=== PATIENT | male | born 1995 | race Caucasian/White ===

== ENCOUNTER 2017-11-29 15:58 | Emergency (ER) | payer SELFPAY ==
--- OUTSIDE RECORDS SUMMARY | 2017-11-29 16:01 | XMS REPORT | Clinical Summary ---
:1995 Author Organization [facility] Address [address] [place] [address] Care Team Providers Name Role Phone Unavailable Primary Care Provider Unavailable Allergies Active Allergy Reactions Severity Noted Date Comments No Known Drug Allergies 05/04/2010 Current Medications Prescription Sig. Disp. Refills Start Date End Date Status SULFAMETHOXAZOLE/TRIMETHOPR Take by mouth. Active IM (BACTRIM OR) methylphenidate (CONCERTA) Take 27 mg by Active 27 mg TR24 mouth every morning. 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 Methicillin resistant Staphylococcus aureus infection 01/13/2010 Fracture, olecranon 01/01/2010 Elbow stiffness 01/01/2010 Encounters Date Type Specialty Care Team Description 11/22/2017 Emergency Emergency Medicine after 11/28/2016 Family History Medical History Relation Name Comments Arthritis Maternal Grandfather Arthritis Maternal Grandmother Arthritis Paternal Grandfather Asthma Paternal Grandfather Hypertension Paternal Grandfather Hypertension Paternal Grandmother Relation Name Status Comments Father Alive Maternal Aunt Alive Maternal Grandfather Alive Maternal Grandmother Alive Maternal Uncle Alive Mother Alive Paternal Aunt Alive Paternal Grandfather Alive Paternal Grandmother Alive Sister Alive Social History Tobacco Use Types Packs/Day Years Used Date Never Smoker Alcohol Use Drinks/Week oz/Week Comments Yes Sex Assigned at Date Recorded Not on file Last Filed Vital Signs Vital Sign Reading Time Taken Blood Pressure 144/66 11/22/2017 1:01 AM CDT Pulse 68 11/22/2017 1:00 AM CDT Temperature 36.6 C (97.9 F) 11/22/2017 1:00 AM CDT Respiratory Rate 18 11/22/2017 1:00 AM CDT Oxygen Saturation 98% 11/22/2017 1:00 AM CDT Inhaled Oxygen Concentration - - Weight - - Height - - Body Mass Index - - Plan of Treatment Health Maintenance Due Date Last Done Comments IMM MenB (1 of 2 - Bexsero 2-Dose Series) 2006 Results BMP POC (11/22/2017 1:15 AM) Component Value Ref Range CO2 POC 24 21 - 32 mmol/L Chloride POC 104 98 - 107 mmol/L Potassium POC 3.9 3.50 - 5.10 mmol/L Sodium POC 141 136 - 145 mmol/L Glucose POC 101 74 - 106 mg/dL Urea Nitrogen POC 20 (H) 7 - 18 mg/dL Creatinine POC 1.0 0.6 - 1.3 mg/dL Calcium Ionized POC 1.12 (L) 1.15 - 1.29 mmol/L Hemoglobin POC 16.3 14.0 - 18.0 g/dL Hematocrit POC 48.0 40.0 - 54.0 % GFR, Estimated >60 mL/min/1.73 m2 GFR, Estim, Afr-Am >60 mL/min/1.73 m2 Specimen Performing Laboratory [facility] TROPONIN I POC (11/22/2017 1:13 AM) Component Value Ref Range Troponin POC 0.00 0.00 - 0.08 ng/mL Specimen Performing Laboratory [facility] 12 LEAD EKG (11/22/2017 1:06 AM) Component Value Ref Range 12 LEAD EKG FOR [facility] Test Date:2017-11-22 Pat Name: FARIDA MACKDepartment: : 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 Measurements IntervalsAxis Rate: 63 P: 45 SC: 174QRS: 54 QRSD: 87 T: 24 QT: 402 QTc:413 Interpretive Statements SINUS RHYTHM WITH SINUS ARRHYTHMIA Electronically Signed On 11-22-17 06:00:54 CDT by Armando Robles M.D. Specimen Performing Laboratory SMS after 11/28/2016
--- OUTSIDE RECORDS SUMMARY | 2017-11-29 16:01 | XMS REPORT | Clinical Summary ---
:1995 Demographics Phone Unavailable Preferred Language Unknown Marital Status Unknown Mosque Affiliation Unknown Race Unknown Ethnic Group Unknown Author Organization [facility] Address [address] [place] [address] Care Team Providers Name Role Phone Unavailable Primary Care Provider Unavailable Allergies No Known Allergies Current Medications Not on file Active Problems Not on file Encounters Date Type Specialty Care Team Description 11/21/2017 - 11/22/2017 Emergency Emergency Medicine after 11/28/2016 Social History Tobacco Use Types Packs/Day Years Used Date Never Assessed Sex Assigned at Date Recorded Not on file Last Filed Vital Signs Vital Sign Reading Time Taken Blood Pressure 132/80 11/21/2017 9:33 PM CDT Pulse 73 11/21/2017 9:33 PM CDT Temperature 36.9 C (98.4 F) 11/21/2017 9:33 PM CDT Respiratory Rate 18 11/21/2017 9:33 PM CDT Oxygen Saturation 98% 11/21/2017 9:33 PM CDT Inhaled Oxygen Concentration - - Weight - - Height 180.3 cm (5' 11") 11/21/2017 9:33 PM CDT Body Mass Index - - Plan of Treatment Not on file Results ECG 12 lead (11/21/2017 9:28 PM) Component Value Ref Range Ventricular rate 66 Atrial rate 66 AR interval 162 QRSD interval 98 QT interval 388 QTC interval 406 P axis 1 40 QRS axis 1 52 T wave axis 30 EKG impression Normal sinus rhythm-Normal ECG-No previous ECGs available- Specimen Performing Laboratory [facility] M[facility] [address] [place] [address] after 11/28/2016
--- OUTSIDE RECORDS SUMMARY | 2017-11-29 16:01 | XMS REPORT ---
:1995 [facility] Address [address] [place] [address] Dr. Rosa [address] [place] [address] Care Team Providers Name Role Phone Unavailable Unavailable Unavailable Problems This patient has no known problems. Allergies, Adverse Reactions, Alerts This patient has no known allergies or adverse reactions. Medications This patient has no known medications. Encounters Start End Encounter Admission Attending Care Care Encounter Date/Time Date/Time Type Type Clinicians Facility Department ID 2017-11-22 2017-11-22 Emergency [facility] MED [id number] 00:59:00 00:59:00
--- NOTE | 2017-11-29 20:47 | ER ---
Nurse's Notes [facility] Name: Wei Mack Age: 22 yrs Sex: Male : 1995 Arrival Date: 11/29/2017 Time: 16:01 Bed Waiting Private MD: None, None Diagnosis: Presentation: 11/29 16:13 Presenting complaint: Patient states: Headache for 3 days that is not helped by OTC aj medication. Transition of care: patient was not received from another setting of care. Onset of symptoms was November 26, 2017. Risk Assessment: Do you want to hurt yourself or someone else? Patient reports no desire to harm self or others. Care prior to arrival: None. 16:13 Method Of Arrival: Ambulatory aj 16:13 Acuity: JULIETA 4 aj Triage Assessment: 16:14 Headache History: The patient has had previous headaches and this one is more severe aj than previous episodes. General: Appears in no apparent distress. comfortable, Behavior is calm, cooperative, appropriate for age. Pain: Complains of pain in face and scalp Pain currently is 6 out of 10 on a pain scale. Pain began 2-3 days ago. Also complains of no other associated symptoms. Neuro: Level of Consciousness is awake, alert, obeys commands, Oriented to person, place, time, situation, Appropriate for age. Neuro: Reports headache. Respiratory: Airway is patent Respiratory effort is even, unlabored, Respiratory pattern is regular, symmetrical. Derm: Skin is intact, is healthy with good turgor, Skin is pink, warm \T\ dry. normal. Historical: - Allergies: 16:14 No Known Allergies; aj - Home Meds: 16:14 None [Active]; aj - PMHx: 16:14 Hypertension; aj - PSHx: 16:14 None; aj - Immunization history:: Adult Immunizations up to date. - Social history:: Smoking status: Patient uses tobacco products, smokes one pack cigarettes per day. - Ebola Screening: : Patient negative for fever greater than or equal to 101.5 degrees Fahrenheit, and additional compatible Ebola Virus Disease symptoms Patient denies exposure to infectious person Patient denies travel to an Ebola-affected area in the 21 days before illness onset No symptoms or risks identified at this time. Vital Signs: 16:14 BP 139 / 74; Pulse 81; Resp 16; Temp 97.8; Pulse Ox 98% on R/A; Weight 104.33 kg; aj Height 5 ft. 11 in. (180.34 cm); Pain 6/10; 16:14 Body Mass Index 32.08 (104.33 kg, 180.34 cm) aj ED Course: 16:01 Patient arrived in ED. sb2 16:01 None, None is Private Physician. sb2 16:14 Triage completed. aj 16:14 Arm band placed on right wrist. Patient placed in waiting room, Patient notified of aj wait time. 20:17 Patient's name was called from ER lobby. No response. aj 20:31 Patient's name was called from ER lobby. No response. aj 20:46 Patient's name was called from ER lobby. No response. aj 20:47 Sundeep Welch MD is Attending Physician. aj Administered Medications: No medications were administered Outcome: 20:46 Eloped from waiting room, before seeing physician Time discovered patient gone: November aj 2017 at 20:46 20:47 Patient left the ED. aj Signatures: Nafisa Gonzalez, RN RN Luzmaria Hoffman sb2
[2017-11-29 21:11] VITALS: BP 139/74; TEMP 97.8; O2SAT 98
== END 2017-11-29 20:47 | disposition left against medical advice (07) ==
LOC: ER 15:58
DX: R51 Headache (principal); Z53.21 Procedure and treatment not carried out due to patient leaving prior to being seen by health care provider; I10 Essential (primary) hypertension; F17.210 Nicotine dependence, cigarettes, uncomplicated
CPT/HCPCS: 99281

== ENCOUNTER 2018-08-06 14:24 | Emergency (ER) | payer SELFPAY ==
--- OUTSIDE RECORDS SUMMARY | 2018-08-06 14:27 | XMS REPORT | Clinical Summary ---
:1995 Demographics Phone Unavailable Preferred Language Unknown Marital Status Unknown Holiness Affiliation Unknown Race Unknown Ethnic Group Unknown Author Organization [facility] Address [address] [place] [address] Care Team Providers Name Role Phone Unavailable Primary Care Provider Unavailable Allergies No Known Allergies Medications Not on file Active Problems Not on file Encounters Date Type Specialty Care Team Description 11/21/2017 - 11/22/2017 Emergency Emergency Medicine after 08/05/2017 Social History Tobacco Use Types Packs/Day Years Used Date Never Assessed Sex Assigned at Date Recorded Not on file Job Start Date Occupation Industry Not on file Not on file Not on file Travel History Travel Start Travel End No recent travel history available. Last Filed Vital Signs Vital Sign Reading [...] - Plan of Treatment Not on file Procedures Procedure Name Priority Date/Time Associated Diagnosis Comments ECG 12-LEAD STAT 11/21/2017 9:28 PM Results for this CDT procedure are in the results section. after 08/05/2017 Results ECG 12 lead (11/21/2017 9:28 PM CDT) Ventricular rate 66 [facility] Atrial rate 66 [facility] OR interval 162 [facility] QRSD interval 98 [facility] QT interval 388 [facility] QTC interval 406 [facility] P axis 1 40 [facility] QRS axis 1 52 [facility] T wave axis 30 [facility] EKG impression Normal sinus rhythm-Normal ECG-No previous [facility] ECGs available- Performing Organization Address City/State/Zipcode Phone Number [facility] M[facility] [address] [place] [address] after 08/05/2017 Advance Directives Patient has advance care planning documents on file. For more information, please contact:Daniel Love[address] [facility] [place] [address]
--- OUTSIDE RECORDS SUMMARY | 2018-08-06 14:27 | XMS REPORT | Clinical Summary ---
:1995 Author Organization [facility] Address [address] [place] [address] Care Team Providers Name Role Phone Unavailable Primary Care Provider Unavailable Allergies Active Allergy Reactions Severity Noted Date Comments No Known Drug Allergies 05/04/2010 Medications Medication Sig Dispensed Refills Start Date End Date Status SULFAMETHOXAZOLE/TRIMETHO Take by mouth. 0 Active PRIM (BACTRIM OR) methylphenidate Take 27 mg by 0 Active (CONCERTA) 27 mg TR24 mouth every morning. 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 TROPONIN I POC Routine 11/22/2017 1:13 AM Results for this CDT procedure are in the results section. 12 LEAD EKG Routine 11/22/2017 1:06 AM Results for this CDT procedure are in the results section. after 08/05/2017 Results BMP POC (11/22/2017 1:15 AM CDT) CO2 POC 24 21 - 32 mmol/L [facility] 1 Chloride POC 104 98 - 107 mmol/L [facility] 1 Potassium POC 3.9 3.50 - 5.10 [facility] 1 mmol/L Sodium POC 141 136 - 145 mmol/L [facility] 1 Glucose POC 101 74 - 106 mg/dL [facility] 1 Urea Nitrogen POC 20 (H) 7 - 18 mg/dL [facility] 1 Creatinine POC 1.0 0.6 - 1.3 mg/dL [facility] 1 Calcium Ionized POC 1.12 (L) 1.15 - 1.29 [facility] 1 mmol/L Hemoglobin POC 16.3 14.0 - 18.0 g/dL [facility] 1 Hematocrit POC 48.0 40.0 - 54.0 % [facility] 1 GFR, Estimated >60 mL/min/1.73 m2 [facility] 1 GFR, Estim, Afr-Am >60 mL/min/1.73 m2 [facility] 1 Performing Organization Address City/State/Zipcode Phone Number [facility] TROPONIN I POC (11/22/2017 1:13 AM CDT) Troponin POC 0.00 0.00 - 0.08 ng/mL [facility] 1 Performing Organization Address City/State/Zipcode Phone Number [facility] 1 12 LEAD EKG (11/22/2017 1:06 AM CDT) 12 LEAD EKG FOR [facility] SMS Test Date:2017-11-22 Pat Name: FARIDA MACKDepartment: : 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 Measurements IntervalsAxis Rate: 63 P: 45 MD: 174QRS: 54 QRSD: 87 T: 24 QT: 402 QTc:413 Interpretive Statements SINUS RHYTHM WITH SINUS ARRHYTHMIA Electronically Signed On 11-22-17 06:00:54 CDT by Armando Robles M.D. Performing Organization Address City/State/Zipcode Phone Number [facility] after 08/05/2017
--- OUTSIDE RECORDS SUMMARY | 2018-08-06 14:27 | XMS REPORT ---
:1995 [facility] Address [address] [place] [address] Dr. Rosa [address] [place] [address] Care Team Providers Name Role Phone Unavailable Unavailable Unavailable Problems This patient has no known problems. Allergies, Adverse Reactions, Alerts This patient has no known allergies or adverse reactions. Medications This patient has no known medications. Encounters Start End Encounter Admission Attending Care Care Encounter Date/Time Date/Time Type Type Clinicians Facility Department ID 2017-11-22 2017-11-22 Emergency [facility] MED [id number] 00:59:00 00:59:00
--- NOTE | 2018-08-06 15:30 | RAD REPORT ---
EXAM DESCRIPTION: CT - Head Brain Wo Cont - 08/06/2018 3:10 pm CLINICAL HISTORY: weakness/feels confused ;Headache Headache, drowsiness COMPARISON: CT HEAD SPINE CAP W CONTRAST dated 09/14/2013 TECHNIQUE: All CT scans are performed using dose optimization technique as appropriate and may inclu de automated exposure control or mA/KV adjustment according to patient size. FINDINGS: No intracranial hemorrhage, hydrocephalus or extra-axial fluid collection.No areas of brai n edema or evidence of midline shift. The paranasal sinuses and mastoids are clear. The calvarium is intact. IMPRESSION: No acute intracranial abnormality.
[2018-08-06 16:20] LABS: Absolute Monocytes 0.8 K/uL (0.1-1.3); Absolute Neutrophil 6.9 K/uL (1.8-8.0); Basophils % 0.5 % (0-1.3); Eosinophils % 2.9 % (0-4.4); Hematocrit 46.5 % (39.6-49.0); MPV 10.5 fL (7.6-11.3); Monocytes % 7.5 % (3.3-12.3); RBC Red Blood Cell Count 5.65 M/uL (4.33-5.43)
[2018-08-06 16:27] LABS: Albumin 4.3 g/dL (3.4-5.0); Bilirubin Direct 0.1 mg/dL (0-0.2); Bilirubin Total 0.4 mg/dL (0.2-1.0); Potassium 3.8 mmol/L (3.5-5.1); Protein, Total 7.8 g/dL (6.4-8.2)
--- NOTE | 2018-08-06 17:09 | EDPHYS ---
Physician Documentation [facility] Name: Wei Mack Age: 22 yrs Sex: Male : 1995 Arrival Date: 08/06/2018 Time: 14:28 Bed 23 Private MD: None, None ED Physician Lydia Beltran HPI: 08/06 15:45 This 22 yrs old Male presents to ER via Ambulatory with complaints of cp Weakness, Dizziness. 15:45 The patient presents to the emergency department with weakness of the entire body, cp generalized weakness, dizziness. Onset: The symptoms/episode began/occurred yesterday. Context: occurred while the patient was outside fishing. Associated signs and symptoms: Pertinent positives: fatigue, Pertinent negatives: altered mental status, fever, headache, neck stiffness, paresthesias, syncope. Severity of symptoms: in the emergency department the symptoms are unchanged despite home interventions. Patient's baseline: Neuro: alert and fully oriented, Motor: no deficits, Ambulation: walks without assistance, Speech: normal. Historical: - Allergies: 14:44 No Known Allergies; aa5 - Home Meds: 14:44 Lisinopril Oral [Active]; aa5 - PMHx: 14:44 Hypertension; aa5 - PSHx: 14:44 None; aa5 - Immunization history:: Flu vaccine is not up to date. - Social history:: Smoking status: Patient uses tobacco products, smokes one-half pack cigarettes per day. - Ebola Screening: : No symptoms or risks identified at this time. ROS: 15:50 Constitutional: Negative for body aches, chills, fever, poor PO intake. cp 15:50 Eyes: Negative for injury, pain, redness, and discharge. cp 15:50 ENT: Negative for drainage from ear(s), ear pain, sore throat, difficulty swallowing, difficulty handling secretions. 15:50 Cardiovascular: Negative for chest pain, edema, palpitations. 15:50 Respiratory: Negative for cough, shortness of breath, wheezing. 15:50 Abdomen/GI: Negative for abdominal pain, nausea, vomiting, and diarrhea, black/tarry stool, rectal bleeding. 15:50 : Negative for urinary symptoms. 15:50 Skin: Negative for cellulitis, rash. 15:50 Neuro: Positive for dizziness, general weakness, Negative for altered mental status, headache, syncope. 15:50 All other systems are negative. Exam: 15:55 Constitutional: The patient appears in no acute distress, alert, awake, comfortable, cp non-diaphoretic, non-toxic, well developed, well nourished. 15:55 Head/Face: Normocephalic, atraumatic. Eyes: Pupils equal round and reactive to light, cp extra-ocular motions intact. Lids and lashes normal. Conjunctiva and sclera are non-icteric and not injected. Cornea within normal limits. Periorbital areas with no swelling, redness, or edema. ENT: Nares patent. No nasal discharge, no septal abnormalities noted. Tympanic membranes are normal and external auditory canals are clear. Oropharynx with no redness, swelling, or masses, exudates, or evidence of obstruction, uvula midline. Mucous membranes moist. Neck: Trachea midline, no thyromegaly or masses palpated, and no cervical lymphadenopathy. Supple, full range of motion without nuchal rigidity, or vertebral point tenderness. No Meningismus. Chest/axilla: Normal chest wall appearance and motion. Nontender with no deformity. No lesions are appreciated. Cardiovascular: Regular rate and rhythm with a normal S1 and S2. No gallops, murmurs, or rubs. Normal PMI, no JVD. No pulse deficits. Respiratory: Lungs have equal breath sounds bilaterally, clear to auscultation and percussion. No rales, rhonchi or wheezes noted. No increased work of breathing, no retractions or nasal flaring. Abdomen/GI: Soft, non-tender, with normal bowel sounds. No distension or tympany. No guarding or rebound. No evidence of tenderness throughout. Skin: Warm, dry with normal turgor. Normal color with no rashes, no lesions, and no evidence of cellulitis. Neuro: Awake and alert, GCS 15, oriented to person, place, time, and situation. Cranial nerves II-XII grossly intact. Motor strength 5/5 in all extremities. Sensory grossly intact. Cerebellar exam normal. Normal gait. 15:58 ECG was reviewed by the Attending Physician. Vital Signs: 14:44 BP 142 / 82; Pulse 77; Resp 16 S; Temp 98.4(TE); Pulse Ox 98% on R/A; Weight 108.86 kg aa5 (R); Height 5 ft. 11 in. (180.34 cm) (R); Pain 0/10; 17:24 BP 135 / 78; Pulse 70; Resp 18; Pulse Ox 100% on R/A; Pain 0/10; mg2 14:44 Body Mass Index 33.47 (108.86 kg, 180.34 cm) aa5 MDM: 15:44 Patient medically screened. 17:05 Data reviewed: vital signs, nurses notes, lab test result(s), EKG, radiologic studies, cp CT scan. 17:05 Test interpretation: by ED physician or midlevel provider: ECG. Counseling: I had a cp detailed discussion with the patient and/or guardian regarding: the historical points, exam findings, and any diagnostic results supporting the discharge/admit diagnosis, lab results, radiology results, the need for outpatient follow up, a family practitioner, to return to the emergency department if symptoms worsen or persist or if there are any questions or concerns that arise at home. Response to treatment: the patient's symptoms have mildly improved after treatment, and as a result, I will discharge patient. 08/06 15:45 Order name: Basic Metabolic Panel; Complete Time: 16:31 08/06 16:31 Interpretation: Normal except: CL 108; GFR 84. 08/06 15:45 Order name: CBC with Diff; Complete Time: 16:31 08/06 16:31 Interpretation: Normal except: WBC 11.2; RBC 5.65. 08/06 14:46 Order name: CT Head Brain wo Cont; Complete Time: 15:35 [facility] 08/06 15:35 Interpretation: Report reviewed. 08/06 15:45 Order name: EKG; Complete Time: 15:46 08/06 15:45 Order name: LFT's; Complete Time: 16:31 08/06 15:45 Order name: Magnesium; Complete Time: 16:31 08/06 15:45 Order name: EKG - Nurse/Tech; Complete Time: 16:13 08/06 15:45 Order name: Cardiac monitoring; Complete Time: 16:13 08/06 15:45 Order name: IV Saline Lock; Complete Time: 16:13 08/06 15:45 Order name: Labs collected and sent; Complete Time: 16:13 08/06 15:45 Order name: O2 Per Protocol; Complete Time: 16:13 08/06 15:45 Order name: O2 Sat Monitoring; Complete Time: 16:13 cp EC:58 Rate is 58 beats/min. Rhythm is regular. CA interval is normal. QRS interval is normal. cp QT interval is normal. Interpreted by me. Reviewed by me. Administered Medications: No medications were administered Disposition: 19:25 Co-signature as Attending Physician, Lydia Beltran MD. ma2 Disposition: 08/06/18 17:07 Discharged to Home. Impression: Weakness - general, Dizziness. - Condition is Stable. - Discharge Instructions: Dizziness, Weakness. - Medication Reconciliation Form, Thank You Letter, Antibiotic Education, Prescription Opioid Use, Work release form form. - Follow up: Private Physician; When: 2 - 3 days; Reason: Recheck today's complaints. - Problem is new. - Symptoms have improved. Signatures: Dispatcher [employer] EDMS Rea Dozier RN RN aa5 Tommy Menendez PA PA Lydia Beltran MD MD ma2 Geo Bruno RN RN mg2 Corrections: (The following items were deleted from the chart) 17:24 17:07 08/06/2018 17:07 Discharged to Home. Impression: Weakness - general; Dizziness. mg2 Condition is Stable. Forms are Medication Reconciliation Form, Thank You Letter, Antibiotic Education, Prescription Opioid Use. Follow up: Private Physician; When: 2 - 3 days; Reason: Recheck today's complaints. Problem is new. Symptoms have improved. cp
--- NOTE | 2018-08-06 17:09 | ER ---
Nurse's Notes [facility] Name: Wei Mack Age: 22 yrs Sex: Male : 1995 Arrival Date: 08/06/2018 Time: 14:28 Bed 23 Private MD: None, None Diagnosis: Weakness-general;Dizziness Presentation: 08/06 14:43 Presenting complaint: Patient states: generalized weakness, feeling lightheaded, and aa5 intermittent dizziness that began yesterday. Transition of care: patient was not received from another setting of care. Risk Assessment: Do you want to hurt yourself or someone else? Patient reports no desire to harm self or others. Initial Sepsis Screen: Does the patient meet any 2 criteria? No. Patient's initial sepsis screen is negative. Does the patient have a suspected source of infection? No. Patient's initial sepsis screen is negative. Care prior to arrival: None. 14:43 Method Of Arrival: Ambulatory aa5 14:43 Acuity: JULIETA 3 aa5 16:09 Onset of symptoms was August 05, 2018. mg2 Historical: - Allergies: 14:44 No Known Allergies; aa5 - Home Meds: 14:44 Lisinopril Oral [Active]; aa5 - PMHx: 14:44 Hypertension; aa5 - PSHx: 14:44 None; aa5 - Immunization history:: Flu vaccine is not up to date. - Social history:: Smoking status: Patient uses tobacco products, smokes one-half pack cigarettes per day. - Ebola Screening: : No symptoms or risks identified at this time. Screenin:09 Abuse screen: Denies threats or abuse. Denies injuries from another. Nutritional mg2 screening: No deficits noted. Tuberculosis screening: No symptoms or risk factors identified. Fall Risk IV access (20 points). Assessment: 16:08 General: Appears in no apparent distress. comfortable, Behavior is calm, cooperative. mg2 Pain: Denies pain. Neuro: Level of Consciousness is awake, alert, obeys commands, Oriented to person, place, time, situation, Reports dizziness, since yesterday. Cardiovascular: Capillary refill < 3 seconds Patient's skin is warm and dry. Respiratory: Airway is patent Respiratory effort is even, unlabored, Respiratory pattern is regular. GI: No signs and/or symptoms were reported involving the gastrointestinal system. : No signs and/or symptoms were reported regarding the genitourinary system. EENT: No signs and/or symptoms were reported regarding the EENT system. Derm: Skin is intact, is healthy with good turgor, Skin is pink, warm \T\ dry. normal. Musculoskeletal: No signs and/or symptoms reported regarding the musculoskeletal system. Vital Signs: 14:44 BP 142 / 82; Pulse 77; Resp 16 S; Temp 98.4(TE); Pulse Ox 98% on R/A; Weight 108.86 kg aa5 (R); Height 5 ft. 11 in. (180.34 cm) (R); Pain 0/10; 17:24 BP 135 / 78; Pulse 70; Resp 18; Pulse Ox 100% on R/A; Pain 0/10; mg2 14:44 Body Mass Index 33.47 (108.86 kg, 180.34 cm) aa5 ED Course: 14:28 Patient arrived in ED. mr 14:28 None, None is Private Physician. mr 14:43 Arm band placed on. aa5 14:44 Triage completed. aa5 15:09 CT completed. Patient tolerated procedure well. Patient moved to CT. Patient moved back nj from CT. 15:10 CT Head Brain wo Cont In Process Unspecified. EDWI 15:34 Tommy Menendez PA is PHCP. cp 15:34 Lydia Beltran MD is Attending Physician. cp 15:37 Geo Bruno, KACIE is Primary Nurse. mg2 15:58 EKG done, by fingerprint technician. reviewed by Tommy ORDONEZ. sm3 16:09 Patient has correct armband on for positive identification. Pulse ox on. NIBP on. Door mg2 closed. Warm blanket given. 16:10 No provider procedures requiring assistance completed. Inserted saline lock: 20 gauge mg2 in right antecubital area, using aseptic technique. Blood collected. 17:24 IV discontinued, intact, bleeding controlled, No redness/swelling at site. Pressure mg2 dressing applied. Administered Medications: No medications were administered Outcome: 17:07 Discharge ordered by . cp 17:24 Discharged to home ambulatory, with family. mg2 17:24 Condition: stable 17:24 Discharge instructions given to patient, family, Instructed on discharge instructions, follow up and referral plans. Demonstrated understanding of instructions, follow-up care. 17:24 Patient left the ED. mg2 Signatures: Dispatcher [facility], Angela mr Jacoby, Rea, RN RN aa5 Tommy Menendez PA PA cp Jordan, Nathan nj Gardose, Michele, RN RN [facility] [place] [place] Lu Barron 3
--- NOTE | 2018-08-06 17:25 | EKG ---
Test Date: 2018-08-06 Test Time: 15:54:16 Admissions Consultant: XIMENA MEASUREMENT RESULTS: Intervals: Rate: 58 ND: 164 QRSD: 96 QT: 408 QTc: 400 [place]: P: 50 ND: 164 QRS: 78 T: 24 INTERPRETIVE STATEMENTS: Sinus bradycardia with sinus arrhythmia Otherwise normal ECG Compared to ECG 09/14/2013 18:29:41 Sinus rhythm no longer present Electronically Signed On 08-06-18 17:24:33 CAR WHACKER by Higinio Smith
[2018-08-06 19:25] VITALS: TEMP 98.4
[2018-08-06 19:27] VITALS: BP 135/78; O2SAT 100
== END 2018-08-06 17:24 | disposition home or self-care (01) ==
LOC: ER 14:24
DX: R53.1 Weakness (principal); I10 Essential (primary) hypertension; F17.210 Nicotine dependence, cigarettes, uncomplicated
CPT/HCPCS: 36415; 70450; 80048; 80076; 83735; 85025; 93005; 99284

== ENCOUNTER 2018-09-17 16:20 | Emergency (ER) | payer SELFPAY ==
--- OUTSIDE RECORDS SUMMARY | 2018-09-17 16:23 | XMS REPORT ---
:1995 [facility] [address] Rosa [address] [place] [address] Care Team Providers Name Role Phone Unavailable Unavailable Unavailable Problems This patient has no known problems. Allergies, Adverse Reactions, Alerts This patient has no known allergies or adverse reactions. Medications This patient has no known medications. Encounters Start End Encounter Admission Attending Care Care Encounter Date/Time Date/Time Type Type Clinicians Facility Department ID 2017-11-22 2017-11-22 Emergency [facility] [id number] 00:59:00 00:59:00
--- OUTSIDE RECORDS SUMMARY | 2018-09-17 16:23 | XMS REPORT | Clinical Summary ---
:1995 Author Organization [facility] Address [address] [place] [id number] Care Team Providers Name Role Phone Unavailable [...] Team Description 11/22/2017 Emergency Emergency Medicine after 09/16/2017 Family History Medical History Relation Name Comments [...] procedure are in the results section. after 09/16/2017 Results BMP POC (11/22/2017 1:15 AM CDT) [...] 1:06 AM CDT) 12 LEAD EKG FOR [facility] SMS Test Date:2017-11-22 Pat Name: FARIDA MACKDepartment: : Gender: M Security Intelligence Analyst: [id number] :1995 Requested By: Order Number:Reading MD: Armando Robles M.D. Measurements IntervalsAxis Rate: 63 P: 45 WY: 174QRS: 54 QRSD: 87 T: 24 QT: 402 QTc:413 Interpretive Statements SINUS RHYTHM WITH SINUS ARRHYTHMIA Electronically Signed On 11-22-17 06:00:54 CDT by Armando Robles M.D. Performing Organization Address City/State/Zipcode Phone Number [facility] after 09/16/2017
--- OUTSIDE RECORDS SUMMARY | 2018-09-17 16:23 | XMS REPORT | Clinical Summary ---
:1995 Demographics Phone Unavailable Preferred Language Unknown Marital Status Unknown Jewish Affiliation Unknown Race Unknown Ethnic Group Unknown Author Organization [facility] Address [address] [place] [address] Care Team Providers Name Role Phone Unavailable Primary Care Provider Unavailable Allergies No Known Allergies Medications Not on file Active Problems Not on file Encounters Date Type Specialty Care Team Description 11/21/2017 - 11/22/2017 Emergency Emergency Medicine after 09/16/2017 Social History Tobacco Use Types Packs/Day Years [...] in the results section. after 09/16/2017 Results ECG 12 lead (11/21/2017 9:28 PM CDT) Ventricular rate 66 [facility] Atrial rate 66 [facility] ME interval 162 [facility] QRSD interval 98 [facility] QT interval 388 [facility] QTC interval 406 [facility] P axis 1 40 [facility] QRS axis 1 52 [facility] T wave axis 30 [facility] EKG impression Normal sinus rhythm-Normal ECG-No previous [facility] ECGs available- Performing Organization Address City/State/Zipcode Phone Number [facility] [address] [place] [address] after 09/16/2017 Advance Directives Patient has advance care planning documents on file. For more information, please contact:Daniel Love[address] [place] [address]
--- NOTE | 2018-09-17 17:43 | ER ---
Nurse's Notes [facility] Name: Wei Mack Age: 22 yrs Sex: Male : 1995 Arrival Date: 09/17/2018 Time: 16:23 Bed 10 Private MD: None, None Diagnosis: Tinea pedis Presentation: 09/17 16:33 Presenting complaint: Patient states: "I've had athlete's foot for about a month and aa5 not getting better". Transition of care: patient was not received from another setting of care. Onset of symptoms was July 2018. Risk Assessment: Do you want to hurt yourself or someone else? Patient reports no desire to harm self or others. Initial Sepsis Screen: Does the patient meet any 2 criteria? No. Patient's initial sepsis screen is negative. Does the patient have a suspected source of infection? No. Patient's initial sepsis screen is negative. Care prior to arrival: None. 16:33 Method Of Arrival: Ambulatory aa5 16:33 Acuity: JULIETA 5 aa5 Historical: - Allergies: 16:34 No Known Allergies; aa5 - Home Meds: 16:34 lisinopril Oral [Active]; aa5 - PMHx: 16:34 Hypertension; aa5 - PSHx: 16:34 None; aa5 - Immunization history:: Flu vaccine is not up to date. - Social history:: Smoking status: Patient uses tobacco products, smokes one-half pack cigarettes per day. - Ebola Screening: : No symptoms or risks identified at this time. Screenin:50 Abuse screen: Denies threats or abuse. Denies injuries from another. Nutritional hb screening: No deficits noted. Tuberculosis screening: No symptoms or risk factors identified. Fall Risk None identified. Assessment: 16:45 General: Appears in no apparent distress. Behavior is calm, cooperative. Pain: Pain hb currently is 9 out of 10 on a pain scale. Neuro: Level of Consciousness is awake, alert, obeys commands, Oriented to person, place, time, situation. Cardiovascular: Capillary refill < 3 seconds Patient's skin is warm and dry. Respiratory: Airway is patent Respiratory effort is even, unlabored, Respiratory pattern is regular, symmetrical. GI: No signs and/or symptoms were reported involving the gastrointestinal system. : No signs and/or symptoms were reported regarding the genitourinary system. EENT: No signs and/or symptoms were reported regarding the EENT system. Derm: rash on bilateral feet, mild swelling noted to bottom of bilateral feet. Musculoskeletal: No signs and/or symptoms reported regarding the musculoskeletal system. 17:30 Reassessment: Patient appears in no apparent distress at this time. No changes from hb previously documented assessment. Patient and/or family updated on plan of care and expected duration. Pain level reassessed. Patient is alert, oriented x 3, equal unlabored respirations, skin warm/dry/pink. Vital Signs: 16:34 BP 134 / 65; Pulse 87; Resp 16 S; Temp 98.4(TE); Pulse Ox 98% on R/A; Weight 108.86 kg aa5 (R); Height 5 ft. 11 in. (180.34 cm) (R); Pain 9/10; 16:34 Body Mass Index 33.47 (108.86 kg, 180.34 cm) aa5 ED Course: 16:23 Patient arrived in ED. mr 16:24 None, None is Private Physician. mr 16:34 Triage completed. aa5 16:34 Arm band placed on. aa5 16:50 Patient has correct armband on for positive identification. Call light in reach. hb 16:51 Georges Rowe PA is [facility] 16:51 Tommy Schaefer MD is Attending Physician. [facility] 17:11 Carol Ann Kelly, RN is Primary Nurse. hb 17:53 No provider procedures requiring assistance completed. Patient did not have IV access hb during this emergency room visit. Administered Medications: No medications were administered Outcome: 17:43 Discharge ordered by MD. [facility] 17:53 Discharged to home ambulatory, with significant other. hb 17:53 Condition: stable 17:53 Discharge instructions given to patient, Instructed on discharge instructions, follow up and referral plans. medication usage, Demonstrated understanding of instructions, follow-up care, medications, Prescriptions given X 1. 17:54 Patient left the ED. hb Signatures: Georges Rowe PA PA jmm Rivera, Mary mr DozierRea, RN RN aa5 Carol Ann Kelly, KACIE RN hb
--- NOTE | 2018-09-17 17:43 | EDPHYS ---
Physician Documentation [facility] Name: Wei Mack Age: 22 yrs Sex: Male : 1995 Arrival Date: 09/17/2018 Time: 16:23 Bed 10 Private MD: None, None ED Physician Tommy Schaefer HPI: 09/17 17:36 This 22 yrs old Male presents to ER via Ambulatory with complaints of Feet jmm Swelling, Foot Pain. 17:36 The patient presents with pain. Onset: The symptoms/episode began/occurred gradually, 2 jmm week(s) ago. Modifying factors: The symptoms are alleviated by nothing. the symptoms are aggravated by nothing. This is a 22 year old male with a history of htn that presents to the ED with complaints of bilateral foot pain and itching beginning 2 weeks ago. patient states he has used otc lamisil, tea tree oil, and bleach with little relief. Patient states he is prone to atheltes foot. patient denies fever. . Historical: - Allergies: 16:34 No Known Allergies; aa5 - Home Meds: 16:34 lisinopril Oral [Active]; aa5 - PMHx: 16:34 Hypertension; aa5 - PSHx: 16:34 None; aa5 - Immunization history:: Flu vaccine is not up to date. - Social history:: Smoking status: Patient uses tobacco products, smokes one-half pack cigarettes per day. - Ebola Screening: : No symptoms or risks identified at this time. ROS: 17:36 Constitutional: Negative for fever, chills, and weight loss, Cardiovascular: Negative jmm for chest pain, palpitations, and edema, Respiratory: Negative for shortness of breath, cough, wheezing, and pleuritic chest pain. 17:36 MS/extremity: Positive for pain. 17:36 Skin: Positive for itching. 17:36 Allergy/Immunology: Positive for pruritus. 17:36 All other systems are negative. Exam: 17:36 Head/Face: atraumatic. Eyes: EOMI, no conjunctival erythema appreciated ENT: Moist jmm Mucus Membranes Neck: Trachea midline, Supple Chest/axilla: Normal chest wall appearance and motion. Cardiovascular: Regular rate and rhythm. No edema appreciated Respiratory: Normal respirations, no respiratory distress appreciated Abdomen/GI: Non distended, soft Back: Normal ROM 17:36 Constitutional: The patient appears in no acute distress, alert, awake. 17:36 Skin: erythema noted to the dorsum of the left foot, non tender to palpation, scaling noted to the dorsum of the right foot, no induration is appreciated. 17:36 Neuro: Orientation: is normal, Mentation: is normal, Memory: is normal. 17:36 Psych: Behavior/mood is pleasant, cooperative. Vital Signs: 16:34 BP 134 / 65; Pulse 87; Resp 16 S; Temp 98.4(TE); Pulse Ox 98% on R/A; Weight 108.86 kg aa5 (R); Height 5 ft. 11 in. (180.34 cm) (R); Pain 9/10; 16:34 Body Mass Index 33.47 (108.86 kg, 180.34 cm) aa5 MDM: 16:56 Patient medically screened. [facility] 17:41 Data reviewed: vital signs, nurses notes. Counseling: I had a detailed discussion with yanna the patient and/or guardian regarding: the historical points, exam findings, and any diagnostic results supporting the discharge/admit diagnosis, the need for outpatient follow up, to return to the emergency department if symptoms worsen or persist or if there are any questions or concerns that arise at home. ED course: Symptoms appear consistent with tinea. Patient given return precautions for cellulitis. Patient given 2 days off to allow the patient to avoid getting his feet wet from work and prescribed mycolog II. patient understood and agrees with the plan of care. . Administered Medications: No medications were administered Disposition: 09/18 07:07 Co-signature as Attending Physician, Tommy Schaefer MD I agree with the assessment and [facility] plan of care. Disposition: 09/17/18 17:43 Discharged to Home. Impression: Tinea pedis. - Condition is Stable. - Discharge Instructions: Athlete's Foot. - Prescriptions for Nystatin- Triamcinolone 100,000-0.1 unit/gram-% Topical Ointment - apply 1 application by TOPICAL route 2 times per day; 1 tube. - Medication Reconciliation Form, Thank You Letter, Antibiotic Education, Prescription Opioid Use, Work release form form. - Follow up: Private Physician; When: 2 - 3 days; Reason: Recheck today's complaints, Continuance of care, Re-evaluation by your physician. Signatures: Tommy Schaefer MD MD cha Mickail, Joel, PA PA jmm Calderon, Audri, RN RN aa5 Carol Ann Kelly, RN RN hb Corrections: (The following items were deleted from the chart) 09/17 17:54 17:43 09/17/2018 17:43 Discharged to Home. Impression: Tinea pedis. Condition is hb Stable. Forms are Medication Reconciliation Form, Thank You Letter, Antibiotic Education, Prescription Opioid Use. Follow up: Private Physician; When: 2 - 3 days; Reason: Recheck today's complaints, Continuance of care, Re-evaluation by your physician. josef
[2018-09-17 18:49] VITALS: BP 134/65; TEMP 98.4; O2SAT 98
== END 2018-09-17 17:54 | disposition home or self-care (01) ==
LOC: ER 16:20
DX: B35.3 Tinea pedis (principal); I10 Essential (primary) hypertension; Z72.0 Tobacco use; F17.210 Nicotine dependence, cigarettes, uncomplicated
CPT/HCPCS: 99282

== ENCOUNTER 2019-03-06 16:19 | Emergency (ER) | payer SELFPAY ==
--- OUTSIDE RECORDS SUMMARY | 2019-03-06 16:21 | XMS REPORT ---
:1995 [facility] Address [facility] [address] Rosa [address] [place] [address] Care Team Providers Name Role Phone Unavailable Unavailable Unavailable Problems This patient has no known problems. Allergies, Adverse Reactions, Alerts This patient has no known allergies or adverse reactions. Medications This patient has no known medications. Encounters Start End Encounter Admission Attending Care Care Encounter Date/Time Date/Time Type Type Clinicians Facility Department ID 2018-10-19 2018-10-19 Emergency [facility] [id number] 17:10:38 17:10:38 2018-10-19 2018-10-19 Emergency [facility] [id number] 15:31:59 15:31:59 2017-11-22 2017-11-22 Emergency [facility] [id number] 00:59:00 00:59:00
--- OUTSIDE RECORDS SUMMARY | 2019-03-06 16:21 | XMS REPORT | Clinical Summary ---
:1995 Demographics Phone Unavailable Preferred Language Unknown Marital Status Unknown Moravian Affiliation Unknown Race Unknown Ethnic Group Unknown Author Organization [facility] Address [address] [place] [address] Care Team Providers Name Role Phone Unavailable Primary Care Provider Unavailable Allergies No Known Allergies Medications Not on file Active Problems Not on file Social History Tobacco Use Types Packs/Day Years Used Date Never Assessed Sex Assigned at Date Recorded Not on file Job Start Date Occupation Industry Not on file Not on file Not on file Travel History Travel Start Travel End No recent travel history available. 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
--- OUTSIDE RECORDS SUMMARY | 2019-03-06 16:21 | XMS REPORT | Continuity of Care Document ---
:1995 Author Organization [facility] Address [address] [place] [address] Phone Unavailable Care Team Providers Name Role Phone PHYSICIAN, NO Primary Care Physician Unavailable Insurance Providers Guarantor Farida Mack Address [address] [place] [address] Email [email or web address] Payer Self Pay Insurance Subscriber's Name Farida Mack Relationship Self / Same As Patient Group Number NA Group Name NA Advance Directives No advance directive information available. Chief Complaint and Reason for Visit Chief Complaint Extremity Pain/Injury Reason for Visit Contact with [facility] as cause of accidental injury [id number] Problems Active ProblemsNo active problem information available. Past Problems Medical Problem Onset Date Status Contact with [facility] as cause of accidental injury Unknown Acute Costochondritis Unknown Acute Laceration of foot, right Unknown Acute Medications Current Home Medications Medication Dose Units Route Directions Days Qty Instructions Start Date Levofloxacin 500 Mg ORAL Daily for 4 Days 4 Tablet start 02/1602/15/19 (Levaquin 500 Mg [facility] evening *) 500 Mg Tab Wound Social History Social History Problem Response Recorded Date/Time Onset Date Status Hx Physical Abuse No 02/15/2019 5:00pm Not Applicable Not Applicable Smoking Status Start Date Stop Date Current every day smoker Hospital Discharge Instructions No hospital discharge instruction information available. Plan of Care Discharge Date 02/15/19 6:40pm Instructions/Education Provided Marine Life Injury, [id number] Prescriptions See Medication Section Referrals NO PHYSICIAN Additional Instructions/Education keep wound clean with soap and water twice daily, apply over the counter topical antibiotic, and keep covered. take oral antibiotic as prescribed, starting tomorrow. take 2 extra strength tylenol 3 times daily as needed for pain. return for signs of infection such as increasing redness, warmth or discharge Functional Status No functional status information available. Allergies, Adverse Reactions, Alerts No known allergies. Immunizations Immunization Event Date Type Not Given Dose Number Lot Number Rules Examiner Reason TD (Decavac) 02/15/19 Administered 1 [id number] GRIFOLS Vital Signs Acute Vital Signs Vital Response Date/Time Blood Pressure 129/64 mm Hg 02/15/2019 6:59pm Pulse Pulse Rate (adult) 78 beats per minute (60 - 100) 02/15/2019 6:59pm Respiratory Rate 16 breaths per minute (10 - 24) 02/15/2019 6:59pm Temperature Source Oral 02/15/2019 6:59pm Height 5 ft 11 in 02/15/2019 5:00pm Weight 200 lb 02/15/2019 5:00pm Body Mass Index 27.9 kg/m^2 02/15/2019 5:00pm Results No relevant diagnostic test, laboratory data and/or discharge summary information available. Procedures Procedure Status Date Provider(s) X-ray of right foot, three views Completed 02/15/19 HUMERA MENDOZA MD Encounters Encounter Location Arrival/Admit Date Discharge/Depart Date Attending Provider Departed [place] 02/15/19 4:58pm 02/15/19 6:40pm REJI, Emergency Room [facility] HUMERA Valenzuela MD Medical [facility]tr Recent Diagnosis
--- OUTSIDE RECORDS SUMMARY | 2019-03-06 16:21 | XMS REPORT ---
:1995 Author Organization [employer] Care Team Providers Name Role Phone EspañaNagi trejo Provider Role Unavailable Allergies, Adverse Reactions, Alerts Substance Reaction Event Type N.K.D.A. Info Not Available Non Drug Allergy Problems Problem Type Condition Code Onset Dates Condition Status Assessment Pain in joint of right hand M25.541 Active Assessment Closed displaced fracture of neck S62.336D Active of fifth metacarpal bone of right hand with routine healing, subsequent encounter Medications Medication Code Code Instructions Start End Status Dosage System Date Date Tylenol NDC 0 October 29, Active not Allergy 2019 defined Complete Ibuprofen NDC [id number] 200 MG Orally October 29, Active 1 tablet Three times a 2019 with food day or milk as needed Results No Known Results Summary Purpose [employer] Submission
--- NOTE | 2019-03-06 17:32 | ER ---
Nurse's Notes [facility] Name: Wei Mack Age: 23 yrs Sex: Male : 1995 Arrival Date: 03/06/2019 Time: 16:22 Bed Waiting Private MD: Diagnosis: Assessment: 03/06 16:50 Reassessment: pt not in lobby when called. rv ED Course: 16:22 Patient arrived in ED. as 16:36 Shari Garcia FNP-C [facility] 16:36 River Medina MD is Attending Physician. snw Administered Medications: No medications were administered Outcome: 17:30 Patient left the ED. iw Signatures: Shari Garcia FNP-C FNP-CsnMaggie Barreto Irene, RN RN iw Kris Puga RN RN rv
== END 2019-03-06 17:30 | disposition left against medical advice (07) ==
LOC: ER 16:19
DX: Z53.21 Procedure and treatment not carried out due to patient leaving prior to being seen by health care provider (principal)

== ENCOUNTER 2019-08-19 11:13 | Emergency (ER) | payer SELFPAY ==
--- OUTSIDE RECORDS SUMMARY | 2019-08-19 11:15 | XMS REPORT ---
[...] not Allergy 2019 defined Complete Ibuprofen NDC [id number] 200 MG Orally October 29, Active 1 tablet Three times a 2019 with food day or milk as needed Results No Known Results Summary Purpose [employer] Submission
--- OUTSIDE RECORDS SUMMARY | 2019-08-19 11:15 | XMS REPORT ---
:1995 [facility] [address] Rosa [address] [place] [address] Care Team Providers Name Role Phone Unavailable Unavailable Unavailable Problems This patient has no known problems. Allergies, Adverse Reactions, Alerts This patient has no known allergies or adverse reactions. Medications This patient has no known medications. Encounters Start End Encounter Admission Attending Care Care Encounter Date/Time Date/Time Type Type Clinicians Facility Department ID 2018-10-19 2018-10-19 Emergency [facility] [id number] 17:10:38 17:10:38 2018-10-19 2018-10-19 Emergency [facility] [id number] 15:31:59 15:31:59 2017-11-22 2017-11-22 Emergency [facility] MED [id number] 00:59:00 00:59:00
--- OUTSIDE RECORDS SUMMARY | 2019-08-19 11:16 | XMS REPORT | Summary of Care ---
:1995 Author Organization [facility] Address [address] [place] [id number] Care Team Providers Name Role Phone Pcp, Patient Does Not Have A Primary Care Provider Reason for Referral MRI/CAT Scan (STAT) Status Reason Specialty Diagnoses / Referred By Referred To Procedures Contact Contact New Request Diagnostic Diagnoses Foot injury, right, subsequent encounter Rick Becker Radiology Procedures CT FOOT RIGHT W CONTRAST III, PA [address] [place] [address] MRI/CAT Scan (STAT) Status Reason Specialty Diagnoses / Referred By Referred To Procedures Contact Contact New Request Diagnostic Diagnoses Foot injury, right, subsequent encounter Rick Becker Radiology Procedures CT FOOT RIGHT W CONTRAST III, PA [address] [place] [address] Reason for Visit Reason Comments Wound Auth/Cert Status Reason Specialty Diagnoses / Referred By Referred To Procedures Contact Contact Emergency Medicine Diagnoses WOUND [facility] Emergency Dept [address] [place] [address] [place] [address] Encounter Details Date Type Department Care Team Description 03/07/2019 Emergency [facility] Rick Becker III, Foot injury, right, Department PA subsequent encounter [address] [place] [address] [place] [address] (Primary Dx) [place] [address] [place] [address] Allergies No Known Allergiesdocumented as of this encounter (statuses as of 03/07/2019) Medications Medication Sig Dispensed Refills Start Date End Date Status methylphenidate Take 36 mg by 0 Active (CONCERTA) 36 mg 24 mouth every hr tablet morning. ketorolac 10 mg Take 1 tablet 20 tablet 0 11/23/2017 Active tablet by mouth every 6 (six) hours as needed for Pain (scale 1-3). clindamycin 300 mg Take 1 40 capsule 0 03/07/2019 Active capsuleIndications: capsule by 9 Foot injury, right, mouth 4 subsequent encounter (four) times daily for 10 days. sulfamethoxazole-trim Take 1 tablet 20 tablet 0 03/07/2019 Active ethoprim 800-160 mg by mouth per every 12 tabletIndications: (twelve) Foot injury, right, hours. subsequent encounter traMADol (ULTRAM) 50 Take 1 tablet 9 tablet 0 03/07/2019 Active mg tabletIndications: by mouth Foot injury, right, every 8 subsequent encounter (eight) hours as needed for Pain (scale 4-6). acetaminophen Take 3 60 tablet 0 03/07/2019 Active (TYLENOL) 325 mg tablets by 9 tabletIndications: mouth 4 Foot injury, right, (four) times subsequent encounter daily for 5 days. This is the maximum safe dose for a healthy adult. predniSONE 10 mg Take 4 12 tablet 0 03/07/2019 Active tabletIndications: tablets by 9 Foot injury, right, mouth daily subsequent encounter for 3 days. acetaminophen Take 2 30 tablet 0 11/23/2017 Discontinued (TYLENOL) 325 mg tablets by 9 tablet mouth every 6 (six) hours as needed for Pain (scale 1-3). documented as of this encounter (statuses as of 03/07/2019) Active Problems Problem Noted Date Pain in joint, lower leg 07/25/2012 documented as of this encounter (statuses as of 03/07/2019) Social History Tobacco Use Types Packs/Day Years Used Date Passive Smoke Exposure - Never Smoker Smokeless Tobacco: Never Used Comments: Smoking around pt Alcohol Use Drinks/Week oz/Week Comments Not Asked Sex Assigned at Date Recorded Not on file Job Start Date Occupation Industry Not on file Not on file Not on file Travel History Travel Start Travel End No recent travel history available. 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 ___The following limitations apply until pt is seen by Physician and cleared to return to normal activity. ___ Light duty ___ No Sports ___ No work ___ Do not return until fever free for 24 hours. ___ No school Ed Eugenio [facility] [address] [place] [address] [place] [address] If you are unprepared to return to work tomorrow due to pain please give this note to your employer and make a follow up appointment with your MD for further evaluation and limitations. ### The patient may have been given Narcotic pain medications during their stay in the ED that may show up on a Drug Screen. The hospital discharge paper work will identify these medications. @@@@@@@@@@@@@@@@@@@@@@@@@@@@@@@@@@@@@@@@@@@@@@@@@@@@@ Thank you for trusting us with your care. The emergency room is the first stop in the medical management of your complaint . Our primary pupose is to identify life threatening emergancies and to rapidly address those issues. We are releasing you today after evaluation for emergency or life threatening problems related to your complaint. At this time we are comfortable that your condition is stable enough to go home, take oral medications and follow up for further care. If you can't afford a doctor OR MEDICATIONS consider Clinic [facility], [address], [place]; [phone] Medications [facility] [employer] WILL SHOW YOU WHERE YOU CAN GET YOUR MEDICATIONS CHEAPEST. 1. Call your doctor and let them know you were seen for ICD-10-CM ICD-9-CM 1. Foot injury, right, subsequent encounter S99.921D V58.89 959.7 2. Schedule a follow up within 3 days of your ER visit. 3. Take your prescriptions to the pharmacy and get them filled today. 4. Take the medications as prescribed and until completed. 5. You have been referred for further care 6. You may need additional tests Your doctors will help you figure out what you need and how to get them done. 7. Please read all paperwork provided to you. Additional instructions See Attached documented in this encounter Plan of Treatment Health Maintenance Due Date Last Done Comments MENINGOCOCCAL B VACCINES (1 of 2 - 2006 Risk Bexsero 2-dose series) VARICELLA VACCINES (1 of 2 - 13+ 2009 2-dose series) DTaP,Tdap,and Td Vaccines ( - 11/14/2015 Tdap) INFLUENZA VACCINE (#1) 2019 HPV VACCINES Aged Out No longer eligible based on patient's age to complete this topic MENINGOCOCCAL VACCINE Aged Out No longer eligible based on patient's age to complete this topic PNEUMOCOCCAL 0-64 YEARS COMBINED Aged Out No longer eligible based on SERIES patient's age to complete this topic documented as of this encounter Procedures Procedure Name Priority Date/Time Associated Comments Diagnosis CT FOOT RIGHT W STAT 03/07/2019 2:03 Foot injury, right, Results for this CONTRAST PM CDT subsequent procedure are in encounter the results section. CBC WITH DIFFERENTIAL STAT 03/07/2019 12:34 Foot injury, right, Results for this PM CDT subsequent procedure are in encounter the results section. CBC WITH DIFF Routine 03/07/2019 12:34 Foot injury, right, Results for this PM CDT subsequent procedure are in encounter the results section. COMP. METABOLIC PANEL STAT 03/07/2019 12:34 Foot injury, right, Results for this (01263) PM CDT subsequent procedure are in encounter the results section. documented in this encounter Results CT FOOT RIGHT W CONTRAST (03/07/2019 2:03 PM CDT) Specimen Narrative Performed At HISTORY: Stingray trauma to right foot with likely abscess. PACS/VR/DOSE COMPARISON: None. TECHNIQUE: Multidetector contrast enhanced CT scan of right foot and ankle was completed with intravenous injection of nonionic Omnipaque 350 contrast medium. Subsequently numerous sagittal and coronal reformats were generated from the initial 3-D volume data set. FINDINGS: A focal defect in the skin noted along the medial aspect of the hindfoot just below and anterior to the level of ankle with diffuse congestion in subcutaneous fat without any foreign body or localized abscess formation. Underlying bones and joints appear normal. CONCLUSIONS: Focal defect in the medial skin of hindfoot, likely the site of Stingray trauma with diffuse congestion of the subcutaneous fat without an abscess. Procedure Note [facility], Radiant Results Inft User - 03/07/2019 2:23 PM CDT HISTORY: Stingray trauma to right foot with likely abscess. COMPARISON: None. TECHNIQUE: Multidetector contrast enhanced CT scan of right foot and ankle was completed with intravenous injection of nonionic Omnipaque 350 contrast medium. Subsequently numerous sagittal and coronal reformats were generated from the initial 3-D volume data set. FINDINGS: A focal defect in the skin noted along the medial aspect of the hindfoot just below and anterior to the level of ankle with diffuse congestion in subcutaneous fat without any foreign body or localized abscess formation. Underlying bones and joints appear normal. CONCLUSIONS: Focal defect in the medial skin of hindfoot, likely the site of Stingray trauma with diffuse congestion of the subcutaneous fat without an abscess. Performing Organization Address City/State/Zipcode Phone Number PACS/VR/DOSE CBC WITH DIFFERENTIAL (03/07/2019 12:34 PM CDT) WBC 11.16 (H) 4.20 - 10.70 [facility] 10*3/L [facility] RBC 5.72 (H) 4.26 - 5.52 [facility] 10*6/L [facility] HGB 15.7 12.2 - 16.4 [facility] g/dL [facility] HCT 46.9 38.4 - 49.3 % [facility] MCV 82.0 81.7 - 95.6 fL [facility] MCH 27.4 26.1 - 32.7 pg [facility] MCHC 33.5 31.2 - 35.0 [facility] g/dL [facility] RDW-SD 36.8 (L) 38.5 - 51.6 fL [facility] RDW-CV 12.4 12.1 - 15.4 % [facility] PLT 185 150 - 328 [facility] 10*3/L [facility] MPV 11.8 9.8 - 13.0 fL [facility] NRBC/100 WBC 0.0 0.0 - 10.0 /100 [facility] WBCs [facility] NRBC x10^3 <0.01 10*3/L [facility] GRAN MAT (NEUT) % 64.2 % [facility] IMM GRAN % 0.60 % [facility] LYMPH % 23.4 % [facility] MONO % 7.7 % [facility] EOS % 3.7 % [facility] BASO % 0.4 % [facility] GRAN MAT x10^3(ANC) 7.16 (H) 1.99 - 6.95 [facility] 10*3/uL [facility] IMM GRAN x10^3 0.07 (H) 0.00 - 0.06 [facility] 10*3/uL [facility] LYMPH x10^3 2.61 1.09 - 3.23 [facility] 10*3/uL [facility] MONO x10^3 0.86 0.36 - 1.02 [facility] 10*3/uL [facility] EOS x10^3 0.41 0.06 - 0.53 [facility] 10*3/uL [facility] BASO x10^3 0.05 0.01 - 0.09 [facility] 10*3/uL [facility] Specimen Blood - ARM, RIGHT Performing Organization Address City/State/Zipcode Phone Number [facility] CLIA: [id number], [address] [place] [address] COMP. METABOLIC PANEL (59448) (03/07/2019 12:34 PM CDT) NA 145 135 - 145 [facility] mmol/L HOSPITAL [facility] K 3.9 3.5 - 5.0 [facility] mmol/L [facility] CL 109 (H) 98 - 108 mmol/L [facility] CO2 TOTAL 26 23 - 31 mmol/L [facility] AGAP 10 2 - 16 [facility] BUN 17 7 - 23 mg/dL [facility] GLUCOSE 112 (H) 70 - 110 mg/dL [facility] CREATININE 0.97 0.60 - 1.25 [facility] mg/dL [facility] TOTAL BILI 0.2 0.1 - 1.1 mg/dL [facility] CALCIUM 9.5 8.6 - 10.6 [facility] mg/dL [facility] T PROTEIN 8.0 6.3 - 8.2 g/dL [facility] ALBUMIN 4.8 3.5 - 5.0 g/dL [facility] ALK PHOS 105 34 - 122 U/L [facility] ALT(SGPT) 25 9 - 51 U/L [facility] AST(SGOT) 20 13 - 40 U/L [facility] eGFR Calculation 96.8 mL/min/1.73m2 [facility] ([facility]ATORY [place]) eGFR Calculation 117.3 mL/min/1.73m2 [facility] () [facility] Specimen Blood - ARM, RIGHT Narrative Performed At Association of Glomerular Filtration Rate (GFR) [facility] and Staging of Kidney Disease* + + +- + | GFR (mL/min/1.73 m2)| With Kidney Damage|Without Kidney Damage + + +- + |>90| Stage one| Normal + + +- + |60-89|S tage two| Decreased GFR + + +- + |30-59|S tage three| Stage three + + +- + |15-29|S tage four | Stage four + + +- + |<15 (or dialysis)|Stage five | Stage five + + +- + *Each stage assumes the associated GFR level has been in effect for at least three months.Stages 1 to 5, with or without kidney disease, indicate chronic kidney disease. Notes: Determination of stages one and two (with eGFR >59mL/min/1.73 m2) requires estimation of kidney damage for at least three months as defined by structural or functional abnormalities of the kidney, manifested by either: Pathological abnormalities or Markers of kidney damage (including abnormalities in the composition of the blood or urine or abnormalities in imaging tests). Performing Organization Address City/State/Zipcode Phone Number [facility] CLIA: [id number], [address] [place] [address] documented in this encounter Visit Diagnoses Diagnosis Foot injury, right, subsequent encounter - Primary documented in this encounter Administered Medications Medication Order MAR Action Action Date Dose Rate Site iohexol (OMNIPAQUE 350 BULK-100 Given 03/07/2019 1:54 PM CDT 100 mL mL) injection 100 mL 100 mL, Intravenous, ONCE, 1 dose, Sen[place] 03/07/19 at 1415, Routine documented in this encounter"
--- NOTE | 2019-08-19 12:52 | RAD REPORT ---
EXAM DESCRIPTION: CT - Spine Lumbar Wo Con - 08/19/2019 12:40 pm CLINICAL HISTORY: Radiculopathy. PAIN COMPARISON: No comparisons TECHNIQUE: Axial noncontrast CT imaging of the lumbar spine was performed with coronal and sagittal re-formatted images. All CT scans are performed using dose optimization technique as appropriate and may include automated exposure control or mA/KV adjustment according to patient size. FINDINGS: No acute lumbar spine fracture seen. No aggressive marrow pattern or malalignment. Paraspinal tissues are normal in thickness. No paraspinal abscess or hematoma seen. Intervertebral disc disease assessment is inherently limited by CT. Within these limitations, no high -grade canal stenosis suspected. IMPRESSION: Negative examination. Consider MRI follow-up for assessment of disc disease if clinically desired.
--- NOTE | 2019-08-19 12:55 | ER ---
Nurse's Notes [facility] Name: Wei Mack Age: 23 yrs Sex: Male : 1995 Arrival Date: 08/19/2019 Time: 11:16 Bed 24 [facility] MD: Diagnosis: Low back pain Presentation: 08/19 11:25 Presenting complaint: Mid back pain that radiates to buttocks after fall from standing hb 1 week ago, pain became severe after picking up ladder at work today. 11:25 Acuity: JULIETA 4 hb 11:25 Method Of Arrival: Ambulatory hb 12:00 Transition of care: patient was not received from another setting of care. Onset of iw symptoms was August 13, 2019. Risk Assessment: Do you want to hurt yourself or someone else? Patient reports no desire to harm self or others. Initial Sepsis Screen: Does the patient meet any 2 criteria? No. Patient's initial sepsis screen is negative. Does the patient have a suspected source of infection? No. Patient's initial sepsis screen is negative. Care prior to arrival: None. Historical: - Allergies: 11:28 No Known Allergies; hb - Home Meds: 11:28 None [Active]; hb - PMHx: 11:28 Hypertension; hb - PSHx: 11:28 Elbow - Left; hb - Immunization history:: Adult Immunizations up to date. - Coronavirus screen:: The patient has NOT traveled to [place] in the past 14 days. The patient has NOT had contact with known/suspected case of Coronavirus? Proceed with normal triage procedures. - Social history:: Smoking status: Patient/guardian denies using tobacco. - Ebola Screening: : No symptoms or risks identified at this time. Screenin:16 Abuse screen: Denies threats or abuse. Denies injuries from another. Nutritional iw screening: No deficits noted. Tuberculosis screening: No symptoms or risk factors identified. Fall Risk None identified. Assessment: 12:15 General: Appears in no apparent distress. Behavior is calm, cooperative. Pain: iw Complains of pain in lumbar area Pain radiates to buttocks. Neuro: Level of Consciousness is awake, alert, obeys commands, Oriented to person, place, time, situation, Moves all extremities. Full function. Cardiovascular: Patient's skin is warm and dry. Respiratory: Respiratory effort is even, unlabored, Respiratory pattern is regular, symmetrical. Derm: Skin is intact, is healthy with good turgor. Musculoskeletal: Range of motion: intact in all extremities. Vital Signs: 11:27 BP 141 / 77; Pulse 67; Resp 16; Temp 97.4; Pulse Ox 100% on R/A; Weight 104.33 kg; hb Height 5 ft. 11 in. (180.34 cm); Pain 8/10; 11:27 Body Mass Index 32.08 (104.33 kg, 180.34 cm) hb ED Course: 11:16 Patient arrived in ED. mr 11:27 Triage completed. hb 11:27 Arm band placed on. hb 12:00 Patient has correct armband on for positive identification. iw 12:05 Jennifer [facility]ccollum [facility]C [facility] kb 12:05 River Medina MD is Attending Physician. kb 12:15 Lesli Padilla, RN is Primary Nurse. iw 12:16 No provider procedures requiring assistance completed. Patient did not have IV access iw during this emergency room visit. 12:41 CT Lumbar Spine Wo Con In Process Unspecified. EDMS Administered Medications: No medications were administered Outcome: 12:53 Discharge ordered by MD. kb 13:10 Discharged to home ambulatory, with family. iw 13:10 Condition: good 13:10 Discharge instructions given to patient, family, Instructed on discharge instructions, follow up and referral plans. medication usage, Demonstrated understanding of instructions, follow-up care, medications, Prescriptions given X 2. 13:11 Patient left the ED. iw Signatures: Dispatcher [employer] EDMS Jennifer Mccollum FNP-C FNP-Ckb Rivera, Mary mr Lesli Padilla, RN RN iw Carol Ann Kelly RN RN hb
--- NOTE | 2019-08-19 12:55 | EDPHYS ---
Physician Documentation [facility] Name: Wei Mack Age: 23 yrs Sex: Male : 1995 Arrival Date: 08/19/2019 Time: 11:16 Bed 24 Private MD: ED Physician River Medina HPI: 08/19 13:10 This 23 yrs old Male presents to ER via Ambulatory with complaints of Back kb Pain. 13:10 The patient presents with pain that is acute, and tenderness. The symptoms are located kb in the low back. Onset: The symptoms/episode began/occurred 1 week(s) ago. The pain radiates to the buttocks. Associated signs and symptoms: Pertinent positives: none. The problem was sustained during a fall. Modifying factors: The patient symptoms are alleviated by nothing, the patient symptoms are aggravated by lifting. Severity of symptoms: At their worst the symptoms were moderate, in the emergency department the symptoms are unchanged. The patient has not experienced similar symptoms in the past. The patient has not recently seen a physician. 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 States he lifted a heavy ladder today and made the back pain worse. Historical: - Allergies: 11:28 No Known Allergies; hb - Home Meds: 11:28 None [Active]; hb - PMHx: 11: Hypertension; hb - PSHx: 11:28 Elbow - Left; hb - Immunization history:: Adult Immunizations up to date. - Coronavirus screen:: The patient has NOT traveled to [place] in the past 14 days. The patient has NOT had contact with known/suspected case of Coronavirus? Proceed with normal triage procedures. - Social history:: Smoking status: Patient/guardian denies using tobacco. - Ebola Screening: : No symptoms or risks identified at this time. ROS: 13:09 Constitutional: Negative for fever, chills, and weight loss, Cardiovascular: Negative kb for chest pain, palpitations, and edema, Respiratory: Negative for shortness of breath, cough, wheezing, and pleuritic chest pain, Abdomen/GI: Negative for abdominal pain, nausea, vomiting, diarrhea, and constipation, : Negative for injury, bleeding, discharge, and swelling, MS/Extremity: Negative for injury and deformity, Skin: Negative for injury, rash, and discoloration, Neuro: Negative for headache, weakness, numbness, tingling, and seizure. 13:09 Back: Positive for pain at rest, pain with movement, of the low back area and mid back area. Exam: 13:09 Constitutional: This is a well developed, well nourished patient who is awake, alert, kb and in no acute distress. Head/Face: Normocephalic, atraumatic. Neck: Trachea midline, no thyromegaly or masses palpated, and no cervical lymphadenopathy. Supple, full range of motion without nuchal rigidity, or vertebral point tenderness. No Meningismus. Chest/axilla: Normal chest wall appearance and motion. Nontender with no deformity. No lesions are appreciated. Cardiovascular: Regular rate and rhythm with a normal S1 and S2. No gallops, murmurs, or rubs. Normal PMI, no JVD. No pulse deficits. Respiratory: Lungs have equal breath sounds bilaterally, clear to auscultation and percussion. No rales, rhonchi or wheezes noted. No increased work of breathing, no retractions or nasal flaring. Abdomen/GI: Soft, non-tender, with normal bowel sounds. No distension or tympany. No guarding or rebound. No evidence of tenderness throughout. Skin: Warm, dry with normal turgor. Normal color with no rashes, no lesions, and no evidence of cellulitis. MS/ Extremity: Pulses equal, no cyanosis. Neurovascular intact. Full, normal range of motion. Neuro: Awake and alert, GCS 15, oriented to person, place, time, and situation. Cranial nerves II-XII grossly intact. Motor strength 5/5 in all extremities. Sensory grossly intact. Cerebellar exam normal. Normal gait. 13:09 Back: pain, that is moderate, of the low back area and mid back area, ROM is painful, with all movement, normal spinal alignment noted, CVA tenderness, is absent. Vital Signs: 11:27 BP 141 / 77; Pulse 67; Resp 16; Temp 97.4; Pulse Ox 100% on R/A; Weight 104.33 kg; hb Height 5 ft. 11 in. (180.34 cm); Pain 8/10; 11:27 Body Mass Index 32.08 (104.33 kg, 180.34 cm) hb MDM: 12:05 Patient medically screened. kb 13:06 Data reviewed: vital signs, nurses notes. Data interpreted: Pulse oximetry: on room air kb is 100 %. Interpretation: normal. Counseling: I had a detailed discussion with the patient and/or guardian regarding: the historical points, exam findings, and any diagnostic results supporting the discharge/admit diagnosis, radiology results, the need for outpatient follow up, a family practitioner, to return to the emergency department if symptoms worsen or persist or if there are any questions or concerns that arise at home. 08/19 12:16 Order name: CT Lumbar Spine Wo Con kb Administered Medications: No medications were administered Disposition: 16:27 Co-signature as Attending Physician, River Medina MD I agree with the assessment and kdr plan of care. Disposition: 08/19/19 12:53 Discharged to Home. Impression: Low back pain. - Condition is Stable. - Discharge Instructions: Back Injury Prevention, [id number], Back Pain, Adult, [id number], Back Exercises, [id number]. - Prescriptions for Cyclobenzaprine 10 mg Oral Tablet - take 1 tablet by ORAL route every 8 hours As needed; 21 tablet. Diclofenac Sodium 75 mg Oral Tablet, Delayed Release (E.C.) - take 1 tablet by ORAL route 2 times per day As needed; 30 tablet. - Medication Reconciliation Form, Thank You Letter, Antibiotic Education, Prescription Opioid Use, Work release form form. - Follow up: Emergency Department; When: As needed; Reason: Worsening of condition. Follow up: Private Physician; When: 2 - 3 days; Reason: Recheck today's complaints, Continuance of care, Re-evaluation by your physician. Signatures: Dispatcher [employer] EDNJ Jennifer Mccollum, PROMISE-C KISS MIXER-River Lancaster MD MD [facility] Lesli Padilla RN RN Carol Ann Ryder RN RN Corrections: (The following items were deleted from the chart) 13:11 12:53 08/19/2019 12:53 Discharged to Home. Impression: Low back pain. Condition is iw Stable. Forms are Medication Reconciliation Form, Thank You Letter, Antibiotic Education, Prescription Opioid Use. Follow up: Emergency Department; When: As needed; Reason: Worsening of condition. Follow up: Private Physician; When: 2 - 3 days; Reason: Recheck today's complaints, Continuance of care, Re-evaluation by your physician. rafael
[2019-08-19 13:36] VITALS: BP 141/77; TEMP 97.4; O2SAT 100
== END 2019-08-19 13:11 | disposition home or self-care (01) ==
LOC: ER 11:13
DX: M54.5 Low back pain (principal); I10 Essential (primary) hypertension
CPT/HCPCS: 72131; 99283

== ENCOUNTER 2020-05-25 20:53 | Emergency (ER) | payer OTHER, SELFPAY ==
--- OUTSIDE RECORDS SUMMARY | 2020-05-25 20:56 | XMS REPORT | Continuity of Care Document ---
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 00:00: Staphyloco Staphyloco 00 ccus ccus aureus aureus infection infection Fracture, Fracture, Disease Active [facility] ris olecranon olecranon 01-01 Heal 00:00: 00 Elbow Elbow Disease Active [facility] stiffness stiffness 01-01 Heal 00:00: 00 Pain in Pain in Diagnosis [facility] right hand right hand [facility] Closed Closed Diagnosis Active [facility] displaced displaced [facility] - fracture fracture Memori a of neck of of neck of l fifth fifth Outpati metacarpal metacarpal en t bone of bone of Clinics right hand right hand with with routine routine healing, healing, subsequent subsequent encounter encounter Closed Closed Disease Active [facility] fracture fracture Health of right of right hand hand Allergies, Adverse Reactions, Alerts This patient has no known allergies or adverse reactions. Family History Family Member Diagnosis Comments Start Date Stop Date Source Maternal grandfather Arthritis [facility] Maternal grandmother Arthritis [facility] Paternal grandfather Arthritis [facility] Paternal grandfather Asthma [facility] Paternal grandfather Hypertension [facility] Paternal grandmother Hypertension [facility] Social History Social Habit Start Date Stop Date Quantity Comments Source History of tobacco Snuff User [facility] use Sex Assigned At [place] [facility] Cigarettes smoked 2018-10-19 2018-10-19 [facility] current (pack per 00:00:00 00:00:00 day) - Reported Alcohol intake 2018-10-19 2018-10-19 [facility] 00:[facility]:00 00:00:00 of alcohol (finding) Smoking Status Start Date Stop Date Source Current every day smoker 2018-10-19 00:00:00 [facility] Medications Ordered Filled Start Stop Current Ordering Indication Dosage Frequency Signature Comments Components Source Medication Medication Date Date Medication? Clinician (SIG) Name Name Tylenol Tylenol Yes Nagi not [facility] Allergy Allergy 10-29 [place] defined [facility] - Complete Complete 00:00: [facility] 00 [facility] ent Clinics Ibuprofen Ibuprofen Yes Nagi [address] [facility] 10-29 [place] with food [facility] - 00:00: or milk as Memoria 00 needed [facility] Procedures This patient has no known procedures. Plan of Care Planned Activity Planned Date Details Comments Source Future Scheduled Test 2020-03-26 00:00:00 IMM Influenza [facility] Seasonal Mar to August (>/= 19 yrs) [code = IMM Influenza Seasonal Mar to August (>/= 19 yrs)] Encounters Start End Encounter Admission Attending Care Care Encounter Source Date/Time Date/Time Type Type Clinicians Facility Department ID 2019-03-07 2019-03-[address] [facility] [id number] 12:26:10 15:05:00 Rick Hale [id number] [place] [id number] [place] [id number] 2018-12-18 2018-12-18 [facility] [id number] [facility] 14:30:00 14:30:00 t [facility] - and [facility] ent [facility] 2018-10-19 2018-10-19 Emergency [facility] [id number] [place] 17:10:38 17:10:38 Health 2018-10-19 2018-10-19 Emergency [facility] [id number] [place] 15:31:59 15:31:59 Health 2017-11-22 2017-11-22 Emergency [facility] [id number] [place] 00:59:00 00:59:00 Health Results This patient has no known results.
--- OUTSIDE RECORDS SUMMARY | 2020-05-25 20:56 | XMS REPORT | Clinical Summary ---
:[address] 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 Last Filed Vital Signs Not on file Plan of Treatment Health Maintenance Due Date Last Done Comments IMM Influenza Seasonal Mar to August (>/= 19 yrs) 03/26/2020 Results Not on fileafter 05/25/2019 Additional Health Concerns Infection Onset Date Last Indicated Resolved Time Draining, Major 01/13/2010 01/13/2010 Insurance Payer Benefit Plan / Subscriber ID Effective Dates Phone Addre ss Type Group [facility] SELF-PAY xxxxxxxxx 2018-Prese [phone] [id number] SELF-PAY [address]EN[address] [place] [address] (Home) [phone] ANGEILNA Gordon, ([place]) [place] [address]
--- OUTSIDE RECORDS SUMMARY | 2020-05-25 20:56 | XMS REPORT | Clinical Summary ---
:1995 Demographics Phone Unavailable Preferred Language Unknown Marital Status Unknown Confucianist Affiliation Unknown Race Unknown Ethnic Group Unknown Author Organization [facility] Address [address] [place] [address] Care Team Providers Name Role Phone Unavailable Primary Care Provider Unavailable Allergies No Known Active Allergies Medications Not on file Active Problems Not on file Social History Tobacco Use Types Packs/Day Years Used Date Never Assessed Sex Assigned at Date Recorded Not on file Last Filed Vital Signs Not on file Plan of Treatment Not on file Results Not on fileafter 05/25/2019 Advance Directives For more information, please contact: [phone] Type Date Recorded 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
[2020-05-25] MEDS ORDERED: MORPHINE 4 MG/ML SYR ONE (22:52)
[2020-05-25] MEDS ORDERED: ONDANSETRON 4 MG/2 ML VIAL ONE (22:58)
[2020-05-25 23:08] LABS: Absolute Lymphocytes (CBC) 2.8 K/uL (0.7-4.9); Basophils % 1.1 % (0-1.3); Hematocrit 43.8 % (39.6-49.0); Lymphocytes % 39.2 % (15.3-44.8); MPV 10.6 fL (7.6-11.3); RBC Red Blood Cell Count 5.28 M/uL (4.33-5.43)
[2020-05-25 23:19] LABS: Urine Blood NEGATIVE (NEG); Urine Glucose NEGATIVE (NEG); Urine Protein NEGATIVE (NEG); Urine Specific Gravity >1.030 (1.005-1.030); Urine pH 5.5 (5.0-7.0)
[2020-05-25 23:28] LABS: Potassium 3.7 mmol/L (3.5-5.1)
--- NOTE | 2020-05-26 00:01 | ER ---
Nurse's Notes [facility] Name: Wei Mack Age: 24 yrs Sex: Male : 1995 Arrival Date: 05/25/2020 Time: 20:56 Bed 6 Private MD: Diagnosis: Low back pain Presentation: 05/25 21:35 Chief complaint: Patient states: pain in right lower back started last night, tried dm5 ibuprofen with no relief. Pt states that he does not remember lifting anything or injuring his back. pain rated at 9/10 at this time. pt denies previous similar pain. Coronavirus screen: Client denies travel out of the [place] in the last 14 days. At this time, the client does not indicate any symptoms associated with coronavirus-19. Ebola Screen: Patient negative for fever greater than or equal to 101.5 degrees Fahrenheit, and additional compatible Ebola Virus Disease symptoms Patient denies exposure to infectious person. Patient denies travel to an Ebola-affected area in the 21 days before illness onset. No symptoms or risks identified at this time. Initial Sepsis Screen: Does the patient meet any 2 criteria? No. Patient's initial sepsis screen is negative. Does the patient have a suspected source of infection? No. Patient's initial sepsis screen is negative. Risk Assessment: Do you want to hurt yourself or someone else? Patient reports no desire to harm self or others. Onset of symptoms was May 24, 2020. 21:35 Method Of Arrival: Ambulatory dm5 21:35 Acuity: JULIETA 4 dm5 Triage Assessment: 21:50 General: Appears in no apparent distress. uncomfortable, Behavior is calm, cooperative, rr5 appropriate for age. Musculoskeletal: Capillary refill < 3 seconds. Historical: - Allergies: 22:29 No Known Allergies; rr5 - Home Meds: 22:29 None [Active]; rr5 - PMHx: 22:29 Hypertension; rr5 - Immunization history:: Adult Immunizations up to date. - Social history:: Smoking status: Patient reports the use of cigarette tobacco products, smokes one-half pack cigarettes per day, Patient uses alcohol, occasionally. Screenin:50 Abuse screen: Denies threats or abuse. Denies injuries from another. Nutritional rr5 screening: No deficits noted. Tuberculosis screening: No symptoms or risk factors identified. Fall Risk IV access (20 points). Total Cook Fall Scale indicates No Risk (0-24 pts). Assessment: 21:50 General: Appears in no apparent distress. uncomfortable, Behavior is calm, cooperative, rr5 appropriate for age. 21:50 Pain: Complains of pain in back Pain currently is 9 out of 10 on a pain scale. Quality rr5 of pain is described as aching, Pain began gradually, Is intermittent. Neuro: Level of Consciousness is awake, alert, obeys commands, Oriented to person, place, time, situation. Cardiovascular: Capillary refill < 3 seconds Patient's skin is warm and dry. Respiratory: Airway is patent Respiratory effort is even, unlabored, Respiratory pattern is regular, symmetrical. GI: Abdomen is round non-distended. : Reports pain in right flank(s), Denies pain. EENT: No signs and/or symptoms were reported regarding the EENT system. Derm: Skin is intact, is healthy with good turgor, Skin temperature is warm. Musculoskeletal: Circulation, motion, and sensation intact. Capillary refill < 3 seconds. 22:40 Reassessment: Patient appears in no apparent distress at this time. Patient is alert, rr5 oriented x 3, equal unlabored respirations, skin warm/dry/pink. complaint of back pain, ED provider aware with order made and carried out. 23:50 Reassessment: Patient appears in no apparent distress at this time. awaiting for CT rr5 result. 05/26 00:25 Reassessment: Patient appears in no apparent distress at this time. Patient is alert, rr5 oriented x 3, equal unlabored respirations, skin warm/dry/pink. discharge instruction given and explained without complaintsmade Patient states symptoms have improved. Vital Signs: 05/25 21:35 BP 120 / 81; Pulse 87; Resp 18; Temp 98.1(O); Pulse Ox 99% on R/A; Weight 104.33 kg; dm5 Height 5 ft. 11 in. (180.34 cm); Pain 9/10; 21:35 Body Mass Index 32.08 (104.33 kg, 180.34 cm) dm5 ED Course: 20:56 Patient arrived in ED. cl3 21:01 Jennifer Mccollum FNP-C [facility]. kb 21:01 Lydia Beltran MD is Attending Physician. kb 21:37 Triage completed. dm5 21:43 Cesario Nelson, RN is Primary Nurse. rr5 21:50 Patient has correct armband on for positive identification. Placed in gown. Bed in low rr5 position. Call light in reach. Side rails up X2. Pulse ox on. NIBP on. 22:25 No provider procedures requiring assistance completed. Inserted saline lock: 20 gauge rr5 in right antecubital area, using aseptic technique. ,using aseptic technique. inserted by kathleen HESTER Blood collected. 22:29 Arm band placed on right wrist. rr5 22:41 CT Stone Protocol In Process Unspecified. EDND 05/26 00:20 IV discontinued, intact, bleeding controlled, No redness/swelling at site. Pressure rr5 dressing applied. Administered Medications: 05/25 22:56 Drug: morphine 4 mg {Note: RASS 0.} Route: IVP; Site: right antecubital; 05/26 00:00 Follow up: Response: No adverse reaction; Pain is decreased; RASS: Alert and Calm (0) rr5 05/25 22:58 Drug: Zofran (Ondansetron) 4 mg Route: IVP; Site: right antecubital; 05/26 00:00 Follow up: Response: No adverse reaction rr5 Outcome: 00:00 Discharge ordered by . ma2 00:20 Discharged to home ambulatory, with family. rr5 00:20 Condition: stable 00:20 Discharge instructions given to patient, Instructed on discharge instructions, follow up and referral plans. medication usage, Demonstrated understanding of instructions, follow-up care, medications, Prescriptions given X 2. 00:23 Patient left the ED. rr5 Signatures: Dispatcher [employer] EDND Jennifer Mccollum, TANK TRUCK OPERATOR-C TANK TRUCK OPERATOR-Jackie Coombs, RN RN Kathleen Hilario Lydia Beltran MD MD ma2 Roque, Raymond, RN RN [id number] Amarilys Thomas cl3
--- NOTE | 2020-05-26 00:02 | EDPHYS ---
Physician Documentation [facility] Name: Wei Mack Age: 24 yrs Sex: Male : 1995 Arrival Date: 05/25/2020 Time: 20:56 Bed 6 Private MD: ED Physician Lydia Beltran HPI: 05/25 22:43 This 24 yrs old Male presents to ER via Ambulatory with complaints of Back kb Pain. 22:44 The patient complains of pain in the right flank. The pain does not radiate. Onset: The kb symptoms/episode began/occurred yesterday. Modifying factors: The symptoms are alleviated by nothing. the symptoms are aggravated by palpation/percussion. Associated signs and symptoms: The patient has no apparent associated signs or symptoms. Severity of pain: At its worst the pain was moderate in the emergency department the pain is unchanged. The patient has not experienced similar symptoms in the past. The patient has not recently seen a physician. Historical: - Allergies: 22:29 No Known Allergies; rr5 - Home Meds: 22:29 None [Active]; rr5 - PMHx: 22:29 Hypertension; rr5 - Immunization history:: Adult Immunizations up to date. - Social history:: Smoking status: Patient reports the use of cigarette tobacco products, smokes one-half pack cigarettes per day, Patient uses alcohol, occasionally. ROS: 22:43 Constitutional: Negative for fever, chills, and weight loss, Cardiovascular: Negative kb for chest pain, palpitations, and edema, Respiratory: Negative for shortness of breath, cough, wheezing, and pleuritic chest pain, Abdomen/GI: Negative for abdominal pain, nausea, vomiting, diarrhea, and constipation, : Negative for injury, bleeding, discharge, and swelling, MS/Extremity: Negative for injury and deformity, Skin: Negative for injury, rash, and discoloration, Neuro: Negative for headache, weakness, numbness, tingling, and seizure. 22:43 Back: Positive for flank pain, on the right. Exam: 22:42 Constitutional: This is a well developed, well nourished patient who is awake, alert, kb and in no acute distress. Head/Face: Normocephalic, atraumatic. Chest/axilla: Normal chest wall appearance and motion. Nontender with no deformity. No lesions are appreciated. Cardiovascular: Regular rate and rhythm with a normal S1 and S2. No gallops, murmurs, or rubs. Normal PMI, no JVD. No pulse deficits. Respiratory: Lungs have equal breath sounds bilaterally, clear to auscultation and percussion. No rales, rhonchi or wheezes noted. No increased work of breathing, no retractions or nasal flaring. Skin: Warm, dry with normal turgor. Normal color with no rashes, no lesions, and no evidence of cellulitis. MS/ Extremity: Pulses equal, no cyanosis. Neurovascular intact. Full, normal range of motion. Neuro: Awake and alert, GCS 15, oriented to person, place, time, and situation. Cranial nerves II-XII grossly intact. Motor strength 5/5 in all extremities. Sensory grossly intact. Cerebellar exam normal. Normal gait. 22:42 Abdomen/GI: Inspection: abdomen appears normal, Bowel sounds: normal, in all quadrants, Palpation: soft, in all quadrants, mild abdominal tenderness, in the right lower quadrant. 22:42 Back: CVA tenderness, that is moderate, is noted on the right. Vital Signs: 21:35 BP 120 / 81; Pulse 87; Resp 18; Temp 98.1(O); Pulse Ox 99% on R/A; Weight 104.33 kg; dm5 Height 5 ft. 11 in. (180.34 cm); Pain 9/10; 21:35 Body Mass Index 32.08 (104.33 kg, 180.34 cm) dm5 MDM: 21:39 Patient medically screened. kb 22:42 Data reviewed: vital signs, nurses notes. Data interpreted: Pulse oximetry: on room air kb is 99 %. Interpretation: normal. 22:51 Transition of care: After a detail discussion of the patient's case, care is kb transferred to Lydia Beltran MD. 23:59 Differential diagnosis: arthritis, Joint Injury Ligament Injury sprain. Counseling: Nellie hawkins had a detailed discussion with the patient and/or guardian regarding: the historical points, exam findings, and any diagnostic results supporting the discharge/admit diagnosis, the presence of at least one elevated blood pressure reading (>120/80) during this emergency department visit, the need for outpatient follow up. Response to treatment: the patient's symptoms have markedly improved after treatment. 05/25 21:59 Order name: Urine Dipstick--Ancillary (enter results); Complete Time: 13:03 mw2 05/25 22:42 Order name: Basic Metabolic Panel; Complete Time: 13:03 kb 05/25 22:00 Order name: CT Stone Protocol; Complete Time: 13:03 kb 05/25 22:42 Order name: CBC with Diff; Complete Time: 13:03 kb 05/25 21:46 Order name: Urine Dipstick-Ancillary (obtain specimen); Complete Time: 21:53 05/25 22:42 Order name: IV Saline Lock; Complete Time: 22:58 kb 05/25 22:42 Order name: Labs collected and sent; Complete Time: 22:58 kb Administered Medications: 22:56 Drug: morphine 4 mg {Note: RASS 0.} Route: IVP; Site: right antecubital; 05/26 00:00 Follow up: Response: No adverse reaction; Pain is decreased; RASS: Alert and Calm (0) rr5 05/25 22:58 Drug: Zofran (Ondansetron) 4 mg Route: IVP; Site: right antecubital; 05/26 00:00 Follow up: Response: No adverse reaction rr5 Disposition: 03:36 Co-signature as Attending Physician, Lydia Beltran MD. ma2 Disposition: 05/26/20 00:00 Discharged to Home. Impression: Low back pain. - Condition is Stable. - Discharge Instructions: Back Pain, Adult, [id number]. - Prescriptions for Diclofenac Sodium 75 mg Oral Tablet Sustained Release - take 1 tablet by ORAL route 2 times per day; 30 tablet. Cyclobenzaprine 5 mg Oral Tablet - take 1 tablet by ORAL route 3 times per day As needed; 15 tablet. - Medication Reconciliation Form, Thank You Letter, Antibiotic Education, Prescription Opioid Use, Work release form form. - Follow up: Private Physician; When: Tomorrow; Reason: Continuance of care. Signatures: Dispatcher [employer] Jennifer Childs, RONALD VIRGEN-Kathleen Pearl Lydia Beltran MD MD ma2 Cesario Nelson RN RN rr5 Corrections: (The following items were deleted from the chart) 00:23 00:00 05/26/2020 00:00 Discharged to Home. Impression: Low back pain. Condition is rr5 Stable. Forms are Medication Reconciliation Form, Thank You Letter, Antibiotic Education, Prescription Opioid Use. Follow up: Private Physician; When: Tomorrow; Reason: Continuance of care. ma2
[2020-05-26 01:18] VITALS: BP 120/81; TEMP 98.1; O2SAT 99
--- NOTE | 2020-05-26 11:55 | RAD REPORT ---
EXAM DESCRIPTION: CT - Stone Protocol - 05/26/2020 6:53 am CLINICAL HISTORY: 24-year-old male with RIGHT lower back pain since last night. COMPARISON: None. TECHNIQUE: CT of the abdomen and pelvis was performed without intravenous or oral contrast. Multipla flex reformatted images were provided. This exam was performed according to our departmental dose opti mization program which includes use of automated exposure control, adjustment of the mA and/or kV acc ording to patient size and/or use of iterative reconstruction technique. FINDINGS: Evaluation of solid organ pathology is limited secondary to lack of intravenous contrast. Within these limitations, the following observations are made. Chest: Evaluation through the lung bases reveals no focal opacity, pleural effusion or pneumothorax. Heart size is within normal limits. No pericardial effusion. Abdomen and pelvis: The liver, gallbladder, pancreas, spleen, bilateral kidneys and bilateral adrenal glands are within normal limits. The vessels are normal in caliber. No abdominopelvic lymph nodes are noted to be pathologically enlarged by CT measurement criteria. The bowel is within normal limits without abnormal bowel wall thickness or bowel dilation. No free air. No free abdominopelvic fluid collections. The appendix is within normal limits. The osseous structures are within normal limits. IMPRESSION: 1. No specific acute intra-abdominal findings are noted to suggest etiology of the patie nt's RIGHT lower back pain. Electronically signed by: Kaylie Cullen MD 05/25/2020 10:51 PM [facility] Due to temporary technical issues with the PACS/Fluency reporting system, reports are being signed by the in house radiologists without review as a courtesy to insure prompt reporting. The interpreting radiologist is fully responsible for the content of the report.
== END 2020-05-26 00:23 | disposition home or self-care (01) ==
LOC: ER 20:53
DX: M54.5 Low back pain (principal); I10 Essential (primary) hypertension; F17.210 Nicotine dependence, cigarettes, uncomplicated
CPT/HCPCS: 36415; 74176; 76377; 80048; 81003; 85025; 96374; 96375; 99284; J2405

== ENCOUNTER 2020-08-10 11:31 | Emergency (ER) | payer OTHER, SELFPAY ==
--- NOTE | 2020-08-10 12:55 | ER ---
Nurse's Notes [facility] Name: Wei Mack Age: 24 yrs Sex: Male : 1995 Arrival Date: 08/10/2020 Time: 11:34 Bed 20 Private MD: Diagnosis: Sprain of left acromioclavicular joint;Acromioclavicular Separation Presentation: 08/10 11:49 Chief complaint: Patient states: slipped and fell on ice. Pt c/o left shoulder pain. aa5 11:49 Coronavirus screen: Client denies travel out of the [place] in the last 14 days. At this aa5 time, the client does not indicate any symptoms associated with coronavirus-19. Risk Assessment: Do you want to hurt yourself or someone else? Patient reports no desire to harm self or others. Onset of symptoms was August 10, 2020. 11:49 Acuity: JULIETA 3 aa5 11:49 Method Of Arrival: Ambulatory aa5 12:00 Ebola Screen: No symptoms or risks identified at this time. Initial Sepsis Screen: Does bp the patient meet any 2 criteria? No. Patient's initial sepsis screen is negative. Does the patient have a suspected source of infection? No. Patient's initial sepsis screen is negative. Triage Assessment: 12:00 General: Appears in no apparent distress. uncomfortable, Behavior is calm, cooperative, bp appropriate for age. Pain: Complains of pain in LEFT SHOULDER. EENT: No deficits noted. Neuro: No deficits noted. Cardiovascular: No deficits noted. Respiratory: No deficits noted. GI: No signs and/or symptoms were reported involving the gastrointestinal system. : No signs and/or symptoms were reported regarding the genitourinary system. Derm: No deficits noted. Musculoskeletal: Reports pain in LEFT SHOULDER. Historical: - Allergies: 11:49 No Known Allergies; aa5 - PMHx: 11:49 Hypertension; aa5 - PSHx: 11:49 L Elbow; aa5 - Immunization history:: Adult Immunizations unknown. - Social history:: Smoking status: Patient reports the use of cigarette tobacco products, denies chronic smoking, but will smoke occasionally. Screenin:00 Abuse screen: Denies threats or abuse. Denies injuries from another. Nutritional bp screening: No deficits noted. Tuberculosis screening: No symptoms or risk factors identified. Fall Risk Fall in past 12 months (25 points). No secondary diagnosis (0 pts). No IV (0 pts). Ambulatory Aid- None/Bed Rest/Nurse Assist (0 pts). Gait- Normal/Bed Rest/Wheelchair (0 pts) Mental Status- Oriented to own ability (0 pts). Total Cook Fall Scale indicates Low Risk Score (25-44 pts). Fall prevention measures have been instituted. Side Rails Up X 2 Placed close to Nursing Station Frequent Obs/Assesments occuring As available Patient and Family Educated on Fall Prevention Program and strategies. Assessment: 12:00 General: SEE TRIAGE NOTE. bp 13:20 Reassessment: PT D/C HOME AMBULATORY, DX WITH LEFT AC SEPERATION. bp Vital Signs: 11:49 Weight 104.33 kg (R); Height 5 ft. 11 in. (180.34 cm) (R); Pain 9/10; aa5 12:30 BP 124 / 80; Pulse 52; Resp 17; Temp 99.1; Pulse Ox 97% ; bp 13:15 BP 131 / 77; Pulse 68; Resp 16; Pulse Ox 96% ; bp 11:49 Body Mass Index 32.08 (104.33 kg, 180.34 cm) aa5 ED Course: 11:34 Patient arrived in ED. mr 11:49 Arm band placed on Patient placed in an exam room, on a stretcher. aa5 11:52 Joel Koch PA is PHCP. jr8 11:52 Antoni Senior MD is Attending Physician. jr8 12:00 Patient has correct armband on for positive identification. Bed in low position. Call bp light in reach. Side rails up X2. 12:04 Mauri Bauman, RN is Primary Nurse. bp 12:09 Triage completed. aa5 12:43 XRAY Shoulder LEFT 2 view In Process Unspecified. EDMS 12:51 Sam Shelton MD is Referral Physician. jr8 13:00 Sling applied to left arm. bp 13:20 No provider procedures requiring assistance completed. Patient did not have IV access bp during this emergency room visit. Administered Medications: 13:00 Drug: Leona 10 mg-325 mg 1 tabs Route: PO; bp 13:24 Follow up: Response: No adverse reaction; Pain is decreased bp 13:00 Drug: TORadol 30 mg Route: IM; Site: right gluteus; bp 13:24 Follow up: Response: No adverse reaction; Pain is decreased bp Outcome: 12:54 Discharge ordered by MD. lombardi 13:20 Discharged to home ambulatory. bp 13:20 Condition: stable 13:20 Discharge instructions given to patient, Instructed on discharge instructions, follow up and referral plans. medication usage, Demonstrated understanding of instructions, follow-up care, medications, Prescriptions given X 2. 13:24 Patient left the ED. bp Signatures: Dispatcher [employer] Angela GarveyderRea mcgrath, RN RN aa5 Joel Koch PA PA jr8 Mauri Bauman, RN RN bp
--- NOTE | 2020-08-10 12:55 | EDPHYS ---
Physician Documentation [facility] Name: Wei Mack Age: 24 yrs Sex: Male : 1995 Arrival Date: 08/10/2020 Time: 11:34 Bed 20 Private MD: ED Physician Antoni Senior HPI: 08/10 12:47 This 24 yrs old Male presents to ER via Ambulatory with complaints of Fall jr8 Injury, Arm Injury. 12:47 Details of fall: The patient fell from an upright position, while standing. Onset: The jr8 symptoms/episode began/occurred acutely, just prior to arrival, today. Associated injuries: The patient sustained left shoulder, decreased range of motion, swelling. Severity of symptoms: At their worst the symptoms were moderate, in the emergency department the symptoms are unchanged. The patient has not experienced similar symptoms in the past. The patient has not recently seen a physician. Patient slipped on ice outside and fell on left side landing on shoulder. Pain with swelling and decreased ROM since incident . Historical: - Allergies: 11:49 No Known Allergies; aa5 - PMHx: 11:49 Hypertension; aa5 - PSHx: 11:49 L Elbow; aa5 - Immunization history:: Adult Immunizations unknown. - Social history:: Smoking status: Patient reports the use of cigarette tobacco products, denies chronic smoking, but will smoke occasionally. ROS: 12:47 Constitutional: Negative for fever, chills, and weight loss. jr8 12:47 MS/extremity: Positive for decreased range of motion, pain, swelling, tenderness, of the left shoulder. 12:47 All other systems are negative. Exam: 12:47 Head/Face: Normocephalic, atraumatic. Eyes: Pupils equal round and reactive to light, jr8 extra-ocular motions intact. Lids and lashes normal. Conjunctiva and sclera are non-icteric and not injected. Cornea within normal limits. Periorbital areas with no swelling, redness, or edema. ENT: Nares patent. No nasal discharge, no septal abnormalities noted. Tympanic membranes are normal and external auditory canals are clear. Oropharynx with no redness, swelling, or masses, exudates, or evidence of obstruction, uvula midline. Mucous membranes moist. Neck: Trachea midline, no thyromegaly or masses palpated, and no cervical lymphadenopathy. Supple, full range of motion without nuchal rigidity, or vertebral point tenderness. No Meningismus. Cardiovascular: Regular rate and rhythm with a normal S1 and S2. No gallops, murmurs, or rubs. Normal PMI, no JVD. No pulse deficits. Respiratory: Lungs have equal breath sounds bilaterally, clear to auscultation and percussion. No rales, rhonchi or wheezes noted. No increased work of breathing, no retractions or nasal flaring. Abdomen/GI: Soft, non-tender, with normal bowel sounds. No distension or tympany. No guarding or rebound. No evidence of tenderness throughout. Back: No spinal tenderness. No costovertebral tenderness. Full range of motion. Skin: Warm, dry with normal turgor. Normal color with no rashes, no lesions, and no evidence of cellulitis. MS/ Extremity: Pulses equal, no cyanosis. Neurovascular intact. Decreased ROM to left arm secondary to pain Neuro: Awake and alert, GCS 15, oriented to person, place, time, and situation. Cranial nerves II-XII grossly intact. Motor strength 5/5 in all extremities. Sensory grossly intact. Cerebellar exam normal. Normal gait. 12:47 Chest/axilla: Inspection: swelling with tenderness to palpation over the AC region of left shoulder, Palpation: tenderness, that is moderate, of the left clavicle. Vital Signs: 11:49 Weight 104.33 kg (R); Height 5 ft. 11 in. (180.34 cm) (R); Pain 9/10; aa5 12:30 BP 124 / 80; Pulse 52; Resp 17; Temp 99.1; Pulse Ox 97% ; bp 13:15 BP 131 / 77; Pulse 68; Resp 16; Pulse Ox 96% ; bp 11:49 Body Mass Index 32.08 (104.33 kg, 180.34 cm) aa5 Procedures: 12:47 Splinting: Splint applied to left clavicle using sling, applied by tech. Examined by harjit va, post splint application: neurovascular intact, 2+ distal pulses palpable, brisk capillary refill noted, Patient tolerated well. MDM: 11:52 Patient medically screened. jr8 12:47 Data reviewed: vital signs, nurses notes, radiologic studies, plain films. Data jr8 interpreted: Pulse oximetry: on room air is 97 %. Interpretation: normal. Counseling: I had a detailed discussion with the patient and/or guardian regarding: the historical points, exam findings, and any diagnostic results supporting the discharge/admit diagnosis, radiology results, the need for outpatient follow up, a orthopedic surgeon, to return to the emergency department if symptoms worsen or persist or if there are any questions or concerns that arise at home. 08/10 12:15 Order name: XRAY Shoulder LEFT 2 view; Complete Time: 12:59 jr8 08/10 12:46 Order name: Sling; Complete Time: 13:21 jr8 Administered Medications: 13:00 Drug: Highland 10 mg-325 mg 1 tabs Route: PO; bp 13:24 Follow up: Response: No adverse reaction; Pain is decreased bp 13:00 Drug: TORadol 30 mg Route: IM; Site: right gluteus; bp 13:24 Follow up: Response: No adverse reaction; Pain is decreased bp Disposition: 08/10/20 12:54 Discharged to Home. Impression: Sprain of left acromioclavicular joint, Acromioclavicular Separation. - Condition is Stable. - Discharge Instructions: Shoulder Separation. - Prescriptions for Ibuprofen 800 mg Oral Tablet - take 1 tablet by ORAL route every 8 hours As needed take with food; 30 tablet. Tylenol- Codeine #3 300-30 mg Oral Tablet - take 2 tablets by ORAL route every 6 hours As needed; 20 tablet. - Medication Reconciliation Form, Thank You Letter, Antibiotic Education, Prescription Opioid Use form. - Follow up: Sam Shelton MD; When: 1 week; Reason: Recheck today's complaints, Continuance of care, Re-evaluation by your physician. - Problem is new. - Symptoms have improved. Addendum: 08/14/2020 19:25 Co-signature as Attending Physician, Antoni Senior MD I agree with the assessment and t w4 plan of care. Signatures: Dispatcher [employer] Rea Adams, RN RN aa5 Joel Koch PA PA jr8 Mauri Bauman RN RN Antoni He MD MD tw4 Corrections: (The following items were deleted from the chart) 08/10 13:24 12:54 08/10/2020 12:54 Discharged to Home. Impression: Sprain of left acromioclavicular bp joint; Acromioclavicular Separation. Condition is Stable. Forms are Medication Reconciliation Form, Thank You Letter, Antibiotic Education, Prescription Opioid Use. Follow up: Sam Shelton; When: 1 week; Reason: Recheck today's complaints, Continuance of care, Re-evaluation by your physician. Problem is new. Symptoms have improved. jr8
--- NOTE | 2020-08-10 12:59 | RAD REPORT ---
EXAM DESCRIPTION: RAD - Shoulder Left 2 View - 08/10/2020 12:42 pm CLINICAL HISTORY: PAIN COMPARISON: CHEST SINGLE VIEW dated 09/14/2013 TECHNIQUE: Internal and external rotation views of the left shoulder were obtained. FINDINGS: No fracture or dislocation of the humeral head. Patient has a mild AC joint separation wit h widening of the joint and superior displacement of the clavicle when compared with the 2014 chest f ilm. Lateral downward tilting of the acromion matches comparison. No abnormal soft tissue calcificati on. IMPRESSION: Mild AC joint separation.
[2020-08-10] MEDS ORDERED: HYDROCODONE/APAP 10/325 TAB ONE (13:17)
[2020-08-10] MEDS ORDERED: KETOROLAC 30 MG/ML INJ ONE (13:17)
[2020-08-10 13:29] VITALS: TEMP 99.1
[2020-08-10 13:30] VITALS: BP 131/77; O2SAT 96
== END 2020-08-10 13:24 | disposition home or self-care (01) ==
LOC: ER 11:31
DX: S43.52XA Sprain of left acromioclavicular joint, initial encounter (principal); S43.102A Unspecified dislocation of left acromioclavicular joint, initial encounter; W00.0XXA Fall on same level due to ice and snow, initial encounter; Y93.89 Activity, other specified; Y92.89 Other specified places as the place of occurrence of the external cause; I10 Essential (primary) hypertension; F17.210 Nicotine dependence, cigarettes, uncomplicated
CPT/HCPCS: 96372; 99284

== ENCOUNTER 2021-09-26 10:10 | Emergency (ER) | payer OTHER, SELFPAY ==
--- OUTSIDE RECORDS SUMMARY | 2021-09-26 10:13 | XMS REPORT | Continuity of Care Document ---
:1995 Author Organization [facility] t Address 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 Attending Clinician JORGE L Attending Clinician Unavailable Heidi Mortensen Attending Clinician Payers Payer Name Policy Type Policy Number Effective Date Expiration Date Waldemar MARCOS JEWELL [id number] 2020 [employer] PLAN 00:00:00 COLEEN BELTRANSAGE FROM [id number] 2021 [facility] 00:00:00 Problems Condition Condition Condition Status Onset Resolution Last Treating Co mments Source Name Details Category Date Date Treatment Clinician Date [facility] Disease Active [facility] glenoid glenoid 01-05 Health labrum labrum 00:00: lesion of lesion of 00 left left shoulder shoulder Arthralgia Arthralgia Disease Active U T of left of left 01-05 Health acromiocla acromiocla 00:00: vicular vicular 00 joint joint Acute pain Acute pain Disease Active U T of left of left 01-01 Health shoulder shoulder 00:00: 00 Post-opera Post-opera Disease Active 2021-0 U T tive state tive state 10-02 He alth 00:00: 00 Status Status Disease Active UT post post 10-02 Health reconstruc reconstruc 00:00: tion of tion of 00 acromiocla acromiocla vicular vicular joint joint Essential Essential Disease Active Uni vers hypertensi hypertensi 2-28 it y of on on 00:00: [place] [id number] Medical Branch Tobacco Tobacco Disease Active Univers user user 2-28 ity of 00:00: [place] [address] Medical Branch Pain in Pain in Disease Active Univers joint, joint, 1-30 [place] Pain in Pain in Disease Active Univers joint, joint, 1-30 [place] Pain in Pain in Diagnosis Active [facility] [...] routine healing, healing, subsequent subsequent encounter encounter Separation Separation Problem Active U nivers of left of left ity of [place] v[place] vicular Physici joint, joint, ans initial initial encounter encounter Status Status Problem Active Univers post post ity of reconstruc reconstruc [place] tion of tion of Physici acromiocla acromiocla an s vicular vicular joint joint Left Left Problem Active Univers shoulder shoulder ity of pain pain [place] Physici ans Allergies, Adverse Reactions, Alerts Allergy Allergy Status Severity Reaction(s) Onset Inactive Treating Comm ents Source Name Type Date Date Clinician NO KNOWN Drug Active Univers ALLERGIE Class ity of S [facility] Family History Family Member Diagnosis Comments Start Date Stop Date Source Unknown Family Family history of Family History University of Member malignant [place] Physicia ns neoplasm Social History Social Habit Start Date Stop Date Quantity Comments Source Exposure to Unable to assess Univers ity of SARS-CoV-2 [facility] (event) Branch Alcohol intake 2021-07-01 2021-07-01 University of 00:00:00 00:00:00 [facility] Tobacco use and 2013-04-09 2013-04-09 Never used Universit y of exposure 00:00:00 00:00:00 [facility] Tobacco Comment 2013-04-09 2013-04-09 Smoking around Unive rsity of 00:00:00 00:00:00 pt [facility] Sex Assigned At [birth year] [facility] 00:00:00 00:00:00 Smoking Status Start Date Stop Date Source Unknown if ever smoked [facility] Never smoker [facility] Medications Ordered Filled Start Stop Current Ordering Indication Dosage Frequency Signature Comments Components Source Medication Medication Date Date Medication? Clinician (SIG) Name Name No known No Univers medications 07-01 ity of 11:54: [address] methylpheni 2021- No 36mg Take 36 mg Univers date 07-01 by mouth ity of (CONCERTA) 11:53: 00:00 every [place] 36 mg 24 hr 27 :[address] [facility] tablet Branch Cyclobenzap Cyclobenzap Yes OSVALDO Q0.3333D TAKE 1 Univers rine HCl - rine HCl - 2-27 COATS M.D. TABLET 3 ity of 10 MG Oral 10 MG Oral 00:00: TIMES [place] Tablet Tablet 00 DAILY Physici NEEDED. ans HYDROcodone HYDROcodone Yes OSVALDO Take 1-2 Univers -Acetaminop -Acetaminop 2-27 COATS M.D. tablets ity of hen 10-325 hen 10-325 00:00: every 5-6 [place] MG Oral MG Oral 00 hours as Physi ci Tablet Tablet needed for ans pain. HYDROcodone HYDROcodone Yes OSVALDO Take 1 Univers -Acetaminop -Acetaminop 2-25 COATS M.D. tablet ity of hen 5-325 hen 5-325 00:00: every 5-6 [place] MG Oral MG Oral 00 hours Physici Tablet Tablet daily for ans 7 days as needed for pain. HYDROcodone HYDROcodone Yes OSVALDO TAKE 1 Univers -Acetaminop -Acetaminop 2-18 COATS M.D. TABLET ity of hen 5-325 hen 5-325 00:00: EVERY 6-8 [place] MG Oral MG Oral 00 HOURS Physi ci Tablet Tablet NEEDED. ans iohexol 2019-0 2019- No 100mL 100 mL, Unive rs (OMNIPAQUE 03-07 Intravenou it y of 350 19:15: 18:54 s, ONCE, 1 [place] BULK-100 00 :00 dose, [facility] mL) 03/07/19 at Branch injection 1415, 100 mL Routine sulfamethox 2018- Yes [id number] 1{tbl} Take 1 Univers azole-trime 03-07 [id number] tablet by i ty of thoprim 00:00: mouth [place] 800-160 mg 00 every 12 Medic al per tablet (twelve) Branc h hours. traMADol 2018- Yes [id number] 50mg Take 1 Univers (ULTRAM) 50 03-07 [id number] tablet by i ty of mg tablet 00:00: mouth [place] 00 every 8 Medical (eight) Branch hours as needed for Pain (scale 4-6). sulfamethox 2021- No [id number] 1{tbl} Take 1 Univers azole-trime 03-07 tablet by it y of thoprim 00:00: 00:00 mouth [place] 800-160 mg 00 :00 every 12 Medic al per tablet (twelve) Branc h hours. traMADol 2021- No [id number] 50mg Take 1 U nivers (ULTRAM) 50 03-07 tablet by it y of mg tablet 00:00: 00:00 mouth [place] 00 :00 every 8 Medical (eight) Branch hours as needed for Pain (scale 4-6). clindamycin 2019- No [id number] 300mg Take 1 Univers 300 mg 03-07 [id number] capsule by ity of capsule 00:00: 04:59 mouth 4 [place] 00 :00 (four) Medical times Branch daily for 10 days. acetaminoph 2019- No [id number] 975mg Take 3 Univers en 03-07 [id number] tablets by ity of (TYLENOL) 00:00: 04:59 mouth 4 [place] 325 mg 00 :00 (four) Medical tablet times Branch daily for 5 days. This is the maximum safe dose for a healthy adult. predniSONE 2019- No [id number] 40mg Take 4 Univers 10 mg 03-07 [id number] tablets by ity o f tablet 00:00: 04:59 mouth [place] 00 :00 daily for Medical 3 days. Branch Tylenol Tylenol Yes Nagi not [facility] Allergy 10-29 [place] defined [facility] Complete 00:00: [facility] Ibuprofen Ibuprofen Yes [place]i [address] 10-29 [place] with food [facility] - 00:00: or milk as Memoria 00 needed l Outpati ent Clinics ketorolac Yes 10mg Take 1 Univer s 10 mg 5-31 tablet by ity of tablet 00:00: mouth [place] 00 every 6 Medical (six) Branch hours as needed for Pain (scale 1-3). ketorolac No 10mg Take 1 Unive rs 10 mg 5-31 06 tablet by ity of tablet 00:00: 00:00 mouth [place] 00 :00 every 6 Medical (six) Branch hours as needed for Pain (scale 1-3). acetaminoph No 650mg Take 2 Un alejandrina en 5-31 09-12 tablets by ity of (TYLENOL) 00:00: 00:00 mouth [place] 325 mg 00 :00 every 6 Medical tablet (six) Branch hours as needed for Pain (scale 1-3). methylpheni 2012-06 Yes 36mg Take 36 mg Univers date 0-15 by mouth ity of (CONCERTA) 14:01: every [place] 36 mg 24 hr 57 morning. Medi digna tablet Branch Ibuprofen Ibuprofen Yes Unive rs CAPS CAPS ity of [place] Physici ans Vital Signs Vital Name Observation Time Observation Value Comments Source Systolic blood 2021-07-01 16:19:00 152 mm[Hg] Univer sity of pressure [facility] Diastolic blood 2021-07-01 16:19:00 102 mm[Hg] Unive rsity of pressure [facility] Heart rate 2021-07-01 16:19:00 71 /min [facility] Body temperature 2021-07-01 16:19:00 36.33 [place] [facility] Res[facility] rate 2021-07-01 16:19:00 18 /min [facility] Body weight 2021-07-01 16:19:00 117.935 kg [facility] Oxygen saturation in 2021-07-01 16:19:00 98 /min University of Arterial blood by [facility] Pulse oximetry Branch Body weight 2019-03-07 17:24:00 104.327 kg Universi ty of [place] [facility] Systolic blood 2019-03-07 17:23:00 151 mm[Hg] Univer sity of pressure [place] [facility] Diastolic blood 2019-03-07 17:23:00 89 mm[Hg] Unive rsity of pressure [place] [facility] Heart rate 2019-03-07 17:23:00 97 /min Universi ty of [place] [facility] Body temperature 2019-03-07 17:23:00 36.83 [place] Univ ersity of [place] [facility] Respiratory rate 2019-03-07 17:23:00 18 /min Univ ersity of [place] [facility] Oxygen saturation in 2019-03-07 17:23:00 98 /min University of Arterial blood by [facility] Pulse oximetry Branch Body weight 2019-03-07 17:24:00 104.327 kg Universi ty of [place] [facility] Systolic blood 2019-03-07 17:23:00 151 mm[Hg] Univer sity of pressure [place] [facility] Diastolic blood 2019-03-07 17:23:00 89 mm[Hg] Unive rsity of pressure [place] [facility] Heart rate 2019-03-07 17:23:00 97 /min Universi ty of [place] [facility] Body temperature 2019-03-07 17:23:00 36.83 [place] Univ ersity of [place] [facility] Respiratory rate 2019-03-07 17:23:00 18 /min Univ ersity of [place] [facility] Oxygen saturation in 2019-03-07 17:23:00 98 /min University of Arterial blood by [facility] Pulse oximetry Branch Diastolic blood 2020-08-13 14:45:00 93 mm[Hg] Unive rsity of pressure [place] Physician s Heart Rate 2020-08-13 14:45:00 70 /min Universi ty of [place] Physician s Systolic blood 2020-08-13 14:45:00 169 mm[Hg] Univer sity of pressure [place] Physician s Procedures Procedure Date / Time Performing Clinician Source Performed NOTICE OF PRIVACY 2021-07-01 16:12:29 Doctor Unassigned, No Univ ersity [facility] PRACTICES Name Medical Branch CONSENT/REFUSAL FOR 2021-07-01 16:11:28 [facility], [facility] Name Medical Branch Post Op Promis 29 2020-09-23 00:00:00 [facility] Survey Physicians [UTP] Ortho - Surgery 2020-08-13 00:00:00 [facility] Scheduling Physicians CT FOOT RIGHT W 2019-03-07 19:03:54 Rick Becker [place] [facility] [place] [facility] COMP. METABOLIC PANEL 2019-03-07 17:34:00 Rick Becker [facility] ([id number]) [facility] CBC WITH DIFFERENTIAL 2019-03-07 17:34:[address] [facility] History of Elbow [facility] surgery Physicians Plan of Care Planned Activity Planned Date Details Comments Source Diagnostic Test 2020-08-13 [UTP] Ortho - [facility] Pending 00:00:00 Surgery Scheduling Physician s [code = [UTP] Ortho - Surgery Scheduling] Encounters Start End Encounter Admission Attending Care Care Encounter Source Date/Time Date/Time Type Type Clinicians Facility Department ID 2021-01-05 Outpatient [facility] [id number] [place] 10:51:[address] [facility] 2020-10-31 [facility] [id number] [place] 03:05:19 [facility] 2021-07-02 2021-07-02 Letter CALEB Hernandez [id number] Univers 00:00:00 00:00:00 (Out) Eulalia Benz MAGNOLIA [id number] it [facility] [id number] [facility] [id number] [facility] 019 Branch 2021-07-01 2021-07-01 Emergency X RAY MEWYATT ERT [id number] Univers 10:21:00 12:11:00 SHAYAN ity [facility] [place] 2021-07-01 2021-07-01 [facility] [id number] Univers 10:21:00 12:11:00 Shayan ESTRADA [id number] i ty [facility] 4.2.7.2.686 [facility] [id number] [facility] 084 Branch 2021-02-18 2021-02-18 Office Ty, [facility] [id number] [place] 11:18:38 11:48:38 Visit Nicholette SUGAR [id number] Health [place] [id number] [id number] 2021-01-05 2021-01-05 Office Ty, [facility] ORTHO [id number] [place] 13:36:54 14:10:41 Visit Nicholette SUGAR [id number] Health [place] [id number] 2020-10-02 2020-10-02 Appointmen SANCHO COATS [facility]oped[facility] [id number] [facility] 11:15:00 11:15:00 t; OSVALDO COATS, - Sugar ity of Kika RILEY 1 [place] Kika Physic ans 2020-09-04 2020-09-04 Appointmen JORGE L [facility] Orthopedics [id number] [facility] 10:45:00 10:45:00 t; OSVALDO COATS, - [place] ity of Kika RILEY 2 APRIL [facility]. [facility] 2020-08-21 2020-08-21 Appointmen JORGE L [facility] Orthopedics [id number] [facility] 11:30:00 11:30:00 t; OSVALDO COATS, - [place] ity of K[place] RILEY 1 [place] Kika Physic ans 2020-08-13 2020-08-13 Appointmen SANCHO COATS Orthoped[facility] [id number] [facility] 14:45:00 14:45:00 t; OSVALDO COATS, - Sugar ity of K[place] RILEY 1 [place] Kika Physic ans 2019-03-07 2019-03-07 Emergency [facility] [id number] 12:26:10 15:05:00 Rick Estrada [id number] [place] 4.2.7.2.686 [place] [id number] 2019-03-07 2019-03-07 Emergency [facility] [id number] [facility] 12:26:10 15:05:00 Rick Estrada [id number] i ty of [place] 4.2.7.2.686 [place] [id number] [facility] 084 Branch 2018-12-18 2018-12-18 Outpatient [facility] [id number] [facility] 14:30:00 14:30:00 t [facility] ent Clinics 2018-10-19 2018-10-19 Emergency [facility] MED [id number] [place] 17:10:38 17:10:38 Health 2018-10-19 2018-10-19 Emergency [facility] [id number] [place] 15:31:59 15:31:59 Health 2017-11-22 2017-11-22 Emergency [facility] MED [id number] [place] 00:59:00 00:59:00 Health Results Test Description Test Time Test Comments Results Result Sour e Comments CT FOOT RIGHT W 2019-02-24 HISTORY: Stingray Un iversity of CONTRAST 2 trauma to right foot Taiwo valerio [facility] 19:23:09 with likely abscess. Bran ch COMPARISON: None. TECHNIQUE: Multidetector contrast enhanced CT scan of right foot and anklewas completed with intravenous injection of nonionic Omnipaque 350 contrastmedium. Subsequently numerous sagittal and coronal reformats were generatedfrom the initial 3-D volume data set. FINDINGS: A focal defect in the skin noted along the medial aspect of thehindfoot just below and anterior to the level of ankle with diffusecongestion in subcutaneous fat without any foreign body or localizedabscess formation. Underlying bones and joints appear normal. CONCLUSIONS: Focal defect in the medial skin of hindfoot, likely the siteof Stingray trauma with diffuse congestion of the subcutaneous fat withoutan abscess. [facility], Radiant Results Inft User - 03/07/2019 2:23 PM CDTHISTORY: Stingray trauma to right foot with likely abscess.COMPARISON: None.TECHNIQUE: Multidetector contrast enhanced CT scan of right foot and anklewas completed with intravenous injection of nonionic Omnipaque 350 contrastmedium. Subsequently numerous sagittal and coronal reformats were generatedfrom the initial 3-D volume data set.FINDINGS: A focal defect in the skin noted along the medial aspect of thehindfoot just below and anterior to the level of ankle with diffusecongestion in subcutaneous fat without any foreign body or localizedabscess formation. Underlying bones and joints appear normal.CONCLUSIONS: Focal defect in the medial skin of hindfoot, likely the siteof Stingray trauma with diffuse congestion of the subcutaneous fat withoutan abscess. COMP. METABOLIC PANEL ([id number]) 2019-03-07 17:57:00 Test Item Value Reference Range Interpretation Comme nts NA (test code = 9238444879) 145 mmol/L 135-145 K (test code = 5499539576) 3.9 mmol/L 3.5-5 CL (test code = 9137207949) 109 mmol/L 98-108 H CO2 TOTAL (test code = 3842570123) 26 mmol/L 23-31 AGAP (test code = 9712471082) 2-16 BUN (test code = 8702363064) 17 mg/dL 7-23 GLUCOSE (test code = 9779956067) 112 mg/dL 70-110 H CREATININE (test code = 0.97 mg/dL 0.6-1.25 6015974949) TOTAL BILI (test code = 0.2 mg/dL 0.1-1.5 9585393357) CALCIUM (test code = 2130659322) 9.5 mg/dL 8.6-10.6 T PROTEIN (test code = 3338742658) 8.0 g/dL 6.3-8.2 ALBUMIN (test code = 7949505433) 4.8 g/dL 3.5-5 ALK PHOS (test code = 7405880575) 105 U/L 34-122 ALT(SGPT) (test code = 1898172436) 25 U/L 9-51 AST(SGOT) (test code = 9728667291) 20 U/L 13-40 eGFR Calculation (Non- mL/min/1.73m2 Israeli) (test code = 4409021224) eGFR Calculation ( mL/min/1.73m2 Israeli) (test code = 1567846490) [place] (test code = [place]) Association of Glomerular Filtration Rate (GFR) and Staging of Kidney Disease*+ + + +| GFR (mL/min/1.73 m2)?| With Kidney Damage?|?Without Kidney Damage+ +-- + +|?>90?|?Stage one?|? Normal?+ +- + +|?60-89?|?Stage two?|? Decreased GFR? + +-------- + ------+|?30-59?|?Stage three?|? Stage three? + +-------- + ------+|?15-29?|?Stage four? |? Stage four?+ +--- + +|?<15 (or dialysis)?|?Stage five? |? Stage five?+ +--- + +*Each stage assumes the associated GFR level has been in effect for at least three months.?Stages 1 to 5, with or without kidney disease, indicate chronic kidney disease.Notes: Determination of stages one and two (with eGFR >59mL/min/1.73 m2) requires estimation of kidney damage for at least three months as defined by structural or functional abnormalities of the kidney, manifested by either:Pathological abnormalities or Markers of kidney damage (including abnormalities in the composition of the blood or urine or abnormalities in imaging tests). Lab Interpretation (test code = Abnormal 48161-2) [facility] WITH [id number] 17:48:00 Test Item Value Reference Range Interpretation Comments WBC (test code = See_Comment H [Automated 3090-2) message] The sy stem which generated this result transmitted reference range : 4.20 - 10.70 10*3/?L. The reference range was not used to interpret this result as normal/abnormal . RBC (test code = See_Comment H [Automated 559-8) message] The sy stem which generated this result transmitted reference range : 4.26 - 5.52 10*6/?L. The reference range was not used to interpret this result as normal/abnormal . HGB (test code = 15.7 g/dL 12.2-16.4 718-7) HCT (test code = 46.9 % 38.4-49.3 4544-3) MCV (test code = 82.0 fL 81.7-95.6 787-2) MCH (test code = 27.4 pg 26.1-32.7 785-6) MCHC (test code = 33.5 g/dL 31.2-35 786-4) RDW-SD (test code = 36.8 fL 38.5-51.6 L 77438-4) RDW-CV (test code = 12.4 % 12.1-15.4 788-0) PLT (test code = See_Comment [Automated 777-3) message] The sy stem which generated this result transmitted reference range : 150 - 328 10*3/ ?L. The reference r lori was not used to interpret this result as normal/abnormal . MPV (test code = 11.8 fL 9.8-13 17403-8) NRBC/100 WBC (test See_Comment [Automat ed code = 0213806758) message] The system which generated this result transmitted reference range : 0.0 - 10.0 /100 WBCs. The refer ence range was not u sed to interpret th is result as normal/abnormal . NRBC x10^3 (test code <0.01 See_Comment [Auto mated = 6231348793) message] The s ystem which generated this result transmitted reference range : 10*3/?L. The reference range was not used to interpret this result as normal/abnormal . GRAN MAT (NEUT) % 64.2 % (test code = 770-8) IMM GRAN % (test code 0.60 % = 9878377182) LYMPH % (test code = 23.4 % 736-9) MONO % (test code = 7.7 % 5905-5) EOS % (test code = 3.7 % 713-8) BASO % (test code = 0.4 % 706-2) GRAN MAT x10^3(ANC) 7.16 10*3/uL 1.99-6.95 H (test code = 4226049372) IMM GRAN x10^3 (test 0.07 10*3/uL 0-0.06 H code = 3984833607) LYMPH x10^3 (test code 2.61 10*3/uL 1.09-3.23 = 731-0) MONO x10^3 (test code 0.86 10*3/uL 0.36-1.02 = 742-7) EOS x10^3 (test code = 0.41 10*3/uL 0.06-0.53 711-2) BASO x10^3 (test code 0.05 10*3/uL 0.01-0.09 = 704-7) Lab Interpretation Abnormal (test code = 85683-4) [place] [facility]"
--- NOTE | 2021-09-26 10:24 | EDPHYS ---
Physician Documentation [facility] Name: Wei Mack Age: 25 yrs Sex: Male : 1995 Arrival Date: 09/26/2021 Time: 10:13 Bed Waiting Private MD: ED Physician Sundeep Welch HPI: 09/26 10:27 This 25 yrs old Male presents to ER via Ambulatory with complaints of General Weakness, kb Vomiting/Diarrhea. 10:27 The patient presents to the emergency department with nausea, vomiting, diarrhea. kb Onset: The symptoms/episode began/occurred yesterday. Possible causes: unknown. The symptoms are aggravated by nothing. The symptoms are alleviated by nothing. Associated signs and symptoms: Pertinent positives: diarrhea, nausea, vomiting, Pertinent negatives: abdominal pain, fever. Severity of symptoms: At their worst the symptoms were moderate in the emergency department the symptoms have resolved. The patient has not experienced similar symptoms in the past. The patient has not recently seen a physician. Pt states he developed n/v/d around 1700 yesterday. States he ate [place] food at 1100, but hadn't eaten anything else all day. Symptoms resolved at 2300 last night, but he called into work today because he still felt a little weak since he hadn't eaten. States he was told he needed a work note to return so he came to get one. States he feels great now and has been tolerating oral fluids this morning. States he hasn't tried to eat solid food yet. . Historical: - Allergies: 10:20 No Known Allergies; jl7 - Home Meds: 10:20 None [Active]; jl7 - PMHx: 10:20 Hypertension; jl7 - Immunization history:: Adult Immunizations unknown. - Social history:: Smoking status: Patient reports the use of cigarette tobacco products, smokes one-half pack cigarettes per day. ROS: 10:26 Constitutional: Negative for fever, chills, and weight loss. kb 10:26 Abdomen/GI: Positive for nausea, vomiting, and diarrhea, Negative for abdominal pain. 10:26 All other systems are negative. Exam: 10:26 Constitutional: This is a well developed, well nourished patient who is awake, alert, kb and in no acute distress. Head/Face: Normocephalic, atraumatic. ENT: Moist Mucous membranes Respiratory: Respirations even and unlabored. No increased work of breathing. Talking in full sentences Abdomen/GI: Soft, non-tender. No distention Skin: Warm, dry with normal turgor. Normal color. MS/ Extremity: Pulses equal, no cyanosis. Neurovascular intact. Full, normal range of motion. Neuro: Awake and alert, GCS 15, oriented to person, place, time, and situation. Moves all extremities. Normal gait. Psych: Awake, alert, with orientation to person, place and time. Behavior, mood, and affect are within normal limits. Vital Signs: 10:17 BP 130 / 95; Pulse 103; Resp 17; Temp 98.1(O); Pulse Ox 98% ; Weight 127.01 kg; Height jl7 5 ft. 11 in. (180.34 cm); 10:29 Pulse 88; kb 10:17 Body Mass Index 39.05 (127.01 kg, 180.34 cm) jl7 MDM: 10:19 Patient medically screened. kb 10:26 Data reviewed: vital signs, nurses notes. Data interpreted: Pulse oximetry: on room air kb is 98 %. Interpretation: normal. 10:27 Counseling: I had a detailed discussion with the patient and/or guardian regarding: the kb historical points, exam findings, and any diagnostic results supporting the discharge/admit diagnosis, the need for outpatient follow up, a family practitioner, to return to the emergency department if symptoms worsen or persist or if there are any questions or concerns that arise at home. Administered Medications: No medications were administered Disposition: 10:51 Co-signature as Attending Physician, Sundeep Welch MD. rn Disposition Summary: 09/26/21 10:24 Discharge Ordered Location: Home kb Condition: Stable kb Diagnosis - Nausea with vomiting, unspecified kb - Diarrhea, unspecified kb Followup: kb - With: Emergency Department - When: As needed - Reason: Worsening of condition Followup: kb - With: Private Physician - When: 2 - 3 days - Reason: Recheck today's complaints, Continuance of care, Re-evaluation by your physician Discharge Instructions: - Discharge Summary Sheet kb - Viral Gastroenteritis, Adult, [id number] kb Forms: - Medication Reconciliation Form kb - Thank You Letter kb - Antibiotic Education kb - Work release form kb - Prescription Opioid Use kb Signatures: Jennifer Mccollum FNP-C FNP-Ckb Sundeep Welch MD MD rn Dorian, Anu, KACIE RN jl7
--- NOTE | 2021-09-26 10:24 | ER ---
Nurse's Notes [facility] Name: Wei Mack Age: 25 yrs Sex: Male : 1995 Arrival Date: 09/26/2021 Time: 10:13 Bed Waiting Private MD: Diagnosis: Nausea with vomiting, unspecified;Diarrhea, unspecified Presentation: 09/26 10:17 Chief complaint: Patient states: N/V/D all night; reports last episode was at 2300 last jl7 night, called in to work and reports company wants a doctor note to return, pt reports feeling better at this time. Coronavirus screen: diarrhea, nausea, vomiting. Client presents with at least one sign or symptom that may indicate coronavirus-19. Standard/surgical mask placed on the client. Provider contacted for isolation considerations. Ebola Screen: No symptoms or risks identified at this time. Initial Sepsis Screen: Does the patient meet any 2 criteria? No. Patient's initial sepsis screen is negative. Does the patient have a suspected source of infection? No. Patient's initial sepsis screen is negative. Risk Assessment: Do you want to hurt yourself or someone else? Patient reports no desire to harm self or others. Onset of symptoms was September 25, 2021. 10:17 Method Of Arrival: Ambulatory jl7 10:17 Acuity: JULIETA 4 jl7 Triage Assessment: 10:20 General: Appears in no apparent distress. uncomfortable, Behavior is calm, cooperative, jl7 appropriate for age. Pain: Complains of pain in epigastric area. Neuro: Level of Consciousness is awake, alert, obeys commands, Oriented to person, place, time, situation. Cardiovascular: Patient's skin is warm and dry. Respiratory: Airway is patent Respiratory effort is even, unlabored, Respiratory pattern is regular, symmetrical. GI: Reports diarrhea, nausea, vomiting. Derm: Skin is pink, warm \T\ dry. Historical: - Allergies: 10:20 No Known Allergies; jl7 - Home Meds: 10:20 None [Active]; jl7 - PMHx: 10:20 Hypertension; jl7 - Immunization history:: Adult Immunizations unknown. - Social history:: Smoking status: Patient reports the use of cigarette tobacco products, smokes one-half pack cigarettes per day. Screenin:22 Abuse screen: Denies threats or abuse. Denies injuries from another. Nutritional jl7 screening: No deficits noted. Tuberculosis screening: No symptoms or risk factors identified. Fall Risk None identified. Assessment: 10:22 Reassessment: TIMUR Rodriguez in triage assessing pt. jl7 Vital Signs: 10:17 BP 130 / 95; Pulse 103; Resp 17; Temp 98.1(O); Pulse Ox 98% ; Weight 127.01 kg; Height jl7 5 ft. 11 in. (180.34 cm); 10:29 Pulse 88; kb 10:17 Body Mass Index 39.05 (127.01 kg, 180.34 cm) jl7 ED Course: 10:13 Patient arrived in ED. as 10:17 Jennifer Mccollum FNP-C is PHCP. kb 10:17 Sundeep Welch MD is Attending Physician. kb 10:20 Triage completed. jl7 10:20 Arm band placed on right wrist. jl7 10:22 Patient has correct armband on for positive identification. jl7 10:22 No provider procedures requiring assistance completed. Patient did not have IV access jl7 during this emergency room visit. Administered Medications: No medications were administered Outcome: 10:24 Discharge ordered by MD. kb 10:34 Discharged to home ambulatory. jl7 10:34 Condition: stable 10:34 Discharge instructions given to patient, family, Instructed on discharge instructions, follow up and referral plans. Demonstrated understanding of instructions, follow-up care. 10:34 Patient left the ED. jl7 Signatures: Jennifer Mccollum FNP-C FNP-Ckb Martinez, Amelia as Leal, Jahala, RN RN jl7
[2021-09-26 10:54] VITALS: BP 130/95; TEMP 98.1; O2SAT 98
== END 2021-09-26 10:34 | disposition home or self-care (01) ==
LOC: ER 10:10
DX: R11.2 Nausea with vomiting, unspecified (principal); R19.7 Diarrhea, unspecified; F17.210 Nicotine dependence, cigarettes, uncomplicated
CPT/HCPCS: 99281

== ENCOUNTER 2022-12-04 21:10 | Emergency (ER) | payer BC ==
--- OUTSIDE RECORDS SUMMARY | 2022-12-04 21:14 | XMS REPORT | Continuity of Care Document ---
:1995 Author Organization [facility] t Address [address] [facility] [place] [address] Care Team Providers Name Role Phone Murphy Nguyen Primary Care Physician OSVALDO COATS Attending Clinician Unavailable Eulalia Hernandez RN Attending Clinician Unavailable SHAYAN BELL Attending Clinician Unavailable Shayan Arrington Attending Clinician Ty Neal WHITEHEAD Attending Clinician OSVALDO COATS M.D. Attending Clinician Unavailable Rick Mortensen Attending Clinician Payers Payer Name Policy Type Policy Number Effective Date Expiration Date Waldemar serrato PRITI AKIACHAK [id number] 2020 HEALTH PLAN 00:00:00 COLEEN MARCOS FROM [id number] [address] [facility] 00:00:00 Problems Condition Condition Condition Status Onset Resolution Last Treating Co mments Source Name Details Category Date Date Treatment Clinician Date [facility] Disease Active UT glenoid glenoid 01-05 Health labrum labrum 00:00: lesion of lesion of 00 left left shoulder shoulder Arthralgia Arthralgia Disease Active U T of left of left 01-05 Health acromiocla acromiocla 00:00: vicular vicular 00 joint joint Acute pain Acute pain Disease Active U T of left of left 01-01 Health shoulder shoulder 00:00: 00 Post-opera Post-opera Disease Active U T tive state tive state 10-02 He alth 00:00: 00 Status Status Disease Active UT post post 10-02 Health reconstruc reconstruc 00:00: tion of tion of 00 acromiocla acromiocla vicular vicular joint joint Essential Essential Disease Active Uni vers hypertensi hypertensi 2-28 it y of on on 00:00: [place] [address] Medical Branch Tobacco Tobacco Disease Active Univers user user 2-28 ity of 00:00: [place] [address] Medical Branch Pain in Pain in Disease Active Univers joint, joint, 1-30 [place] Pain in Pain in Disease Active Univers joint, joint, 1-30 [place] of [place] 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 2-14 Health elbow elbow 00:00: 00 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 metacarpal metacarpal Me dical bone of bone of [place] right hand right hand with with routine routine healing, healing, subsequent subsequent encounter encounter Closed Closed Disease Active [place] fracture fracture Health of right of right hand hand Separation Separation Problem Active U T of left of left Physici acromiocla acromiocla an s vicular vicular joint, joint, initial initial encounter encounter Status Status Problem Active UT post post Physici reconstruc reconstruc an s tion of tion of acromiocla acromiocla vicular vicular joint joint Left Left Problem Active UT shoulder shoulder Physic i pain pain ans Allergies, Adverse Reactions, Alerts Allergy Allergy Status Severity Reaction(s) Onset Inactive Treating Comm ents Source Name Type Date Date Clinician NO KNOWN Drug Active Univers ALLERGIE Class ity of S [facility] Family History Family Member Diagnosis Comments Start Date Stop Date Source Maternal Arthritis [facility] grandfather Maternal Arthritis [facility] grandmother Paternal Arthritis [facility] grandfather Paternal Asthma [facility] grandfather Paternal Hypertension [facility] grandfather Paternal Hypertension [facility] grandmother Unknown Family Family history of Family History [facility] Member malignant neoplasm Social History Social Habit Start Date Stop Date Quantity Comments Source Exposure to Unable to assess Univers ity of SARS-CoV-2 (event) [facility] Gender identity [facility] Sexual orientation [facility] History of tobacco Snuff User [facility] use History of Social 2019-05-18 2019-05-18 [facility] function 00:00:00 00:00:00 Cigarettes smoked 2018-10-19 2018-10-19 [facility] current (pack per 00:00:00 00:00:00 day) - Reported Alcohol intake 2018-10-19 2018-10-19 Current drinker [facility] 00:00:00 00:00:00 of alcohol (finding) Tobacco use and 2018-10-19 2018-10-19 User of [facility] alth exposure 00:00:00 00:00:00 smokeless tobacco Tobacco Comment 2013-04-09 2013-04-09 Smoking around Unive rsity of 00:00:00 00:00:00 pt [facility] Sex Ass[birth year] At [birth year] Luis Cornell alth 00:00:00 00:00:00 Smoking Status Start Date Stop Date Source Tobacco smoking consumption [facility] unknown Smokes tobacco daily 2018-10-19 00:00:00 [facility] Never smoker [facility] Medications Ordered Filled Start Stop Current Ordering Indication Dosage Frequency Signature Comments Components Source Medication Medication Date Date Medication? Clinician (SIG) Name Name No known No Univers medications 07-01 ity of 11:54: [place] 30 Medical Branch methylpheni 2021- No 36mg Take 36 mg Univers date 07-01 by mouth ity of (CONCERTA) 11:53: 00:00 every [place] 36 mg 24 hr 27 :00 morning. [facility] tablet Branch Cyclobenzap Cyclobenzap Yes OSVALDO Q0.3333D TAKE 1 UT rine HCl - rine HCl - 2- COATS M.D. TABLET 3 Physici 10 MG Oral 10 MG Oral 00:00: TIMES ans Tablet Tablet 00 DAILY NEEDED. HYDROcodone HYDROcodone Yes OSVALDO Take 1-2 UT -Acetaminop -Acetaminop 2-27 COATS M.D. tablets Physici hen 10-325 hen 10-325 00:00: every 5-6 ans MG Oral MG Oral 00 hours as Tablet Tablet needed for pain. HYDROcodone HYDROcodone Yes OSVALDO Take 1 UT -Acetaminop -Acetaminop 2-25 COATS M.D. tablet Physici hen 5-325 hen 5-325 00:00: every 5-6 ans MG Oral MG Oral 00 hours Tablet Tablet daily for 7 days as needed for pain. HYDROcodone HYDROcodone Yes OSVALDO TAKE 1 UT -Acetaminop -Acetaminop 2-18 COATS M.D. TABLET Physici hen 5-325 hen 5-325 00:00: EVERY 6-8 ans MG Oral MG Oral 00 HOURS Tablet Tablet NEEDED. iohexol 2019- No 100mL 100 mL, Unive rs (OMNIPAQUE 03-07 Intravenou it y of 350 19:15: 18:54 s, ONCE, 1 [place] BULK-100 00 :00 dose, [facility] mL) 03/07/19 at Branch injection 1415, 100 mL Routine sulfamethox 2018- Yes [id number] 1{tbl} Take 1 Univers azole-trime 03-07 [id number] tablet by i ty of thoprim 00:00: mouth [place] 800-160 mg 00 every 12 Medic al per tablet (twelve) Branc h hours. traMADol Yes [id number] 50mg Take 1 Univers (ULTRAM) 50 03-07 [id number] tablet by i ty of mg tablet 00:00: mouth [place] 00 every 8 Medical (eight) Branch hours as needed for Pain (scale 4-6). sulfamethox 2021- No [id number] 1{tbl} Take 1 Univers azole-trime 9-12 01-06 tablet by it y of thoprim 00:00: 00:00 mouth [place] 800-160 mg 00 :00 every 12 Medic al per tablet (twelve) Branc h hours. traMADol 2021- No [id number] 50mg Take 1 U nivers (ULTRAM) 50 03-07 tablet by it y of mg tablet 00:00: 00:00 mouth [place] 00 :00 every 8 Medical (eight) Branch hours as needed for Pain (scale 4-6). clindamycin 2018- No [id number] 300mg Take 1 Univers 300 mg 03-07 [id number] capsule by ity of capsule 00:00: 04:59 mouth 4 [place] 00 :00 (four) Medical times Branch daily for 10 days. acetaminoph 2018- No [id number] 975mg Take 3 Univers en 03-07 [id number] tablets by ity of (TYLENOL) 00:00: 04:59 mouth 4 [place] 325 mg 00 :00 (four) Medical tablet times Branch daily for 5 days. This is the maximum safe dose for a healthy adult. predniSONE 2018- No [id number] 40mg Take 4 Univers 10 mg 03-07 [id number] tablets by ity o f tablet 00:00: 04:59 mouth [place] 00 :00 daily for Medical 3 days. Branch Tylenol Tylenol Yes Nagi not Comm on Allergy Allergy 10-29 [place] defined Spirit Complete Complete 00:00: - [facility] 00 [facility] Ibuprofen Ibuprofen Yes Nagi 1 tablet Common 10-29 [place] with food Spirit 00:00: or milk as - [facility] 00 needed [facility] ketorolac Yes 10mg Take 1 Univer s 10 mg -31 tablet by ity of tablet 00:00: mouth [place] 00 every 6 Medical (six) Branch hours as needed for Pain (scale 1-3). ketorolac 2021- No 10mg Take 1 Unive rs 10 mg 5-31 - tablet by ity of tablet 00:00: 00:00 mouth [place] 00 :00 every 6 Medical (six) Branch hours as needed for Pain (scale 1-3). acetaminoph 2018- No 650mg Take 2 Un alejandrina en 11-23 tablets by ity of (TYLENOL) 00:00: 00:00 mouth [place] 325 mg 00 :00 every 6 Medical tablet (six) Branch hours as needed for Pain (scale 1-3). methylpheni 2012-06 Yes 36mg Take 36 mg Univers date 0-15 by mouth ity of (CONCERTA) 14:01: every [place] 36 mg 24 hr 57 morning. [facility] tablet Branch Ibuprofen Ibuprofen Yes UT CAPS CAPS Physici ans Vital Signs Vital Name Observation Time Observation Value Comments Source Systolic blood 2021-07-01 16:19:00 152 mm[Hg] [facility] Diastolic blood 2021-07-01 16:19:00 102 mm[Hg] Unive [facility] Heart rate 2021-07-01 16:19:00 71 /min Universi ty [facility] Body temperature 2021-07-01 16:19:00 36.33 [place] [facility] Respiratory rate 2021-07-01 16:19:00 18 /min Univ ersity [facility] Body weight 2021-07-01 16:19:00 117.935 kg Universi ty [facility] Oxygen saturation in 2021-07-01 16:19:00 98 /min University of Arterial blood by [facility] Pulse oximetry Branch Body weight 2019-03-07 17:24:00 104.327 kg Universi ty [facility] Systolic blood 2019-03-07 17:23:00 151 mm[Hg] Univer [facility] Diastolic blood 2019-03-07 17:23:00 89 mm[Hg] Unive [facility] Heart rate 2019-03-07 17:23:00 97 /min Universi ty [facility] Body temperature 2019-03-07 17:23:00 36.83 [place] [facility] ersity [facility] Respiratory rate 2019-03-07 17:23:00 18 /min Univ ersity [facility] Oxygen saturation in 2019-03-07 17:23:00 98 /min University of Arterial blood by [facility] Pulse oximetry Branch Body weight 2019-03-07 17:24:00 104.327 kg Universi ty [facility] Systolic blood 2019-03-07 17:23:00 151 mm[Hg] Univer sity of pressure [place] [facility] Diastolic blood 2019-03-07 17:23:00 89 mm[Hg] Unive rsity of pressure [facility] Heart rate 2019-03-07 17:23:00 97 /min Universi [facility] Body temperature 2019-03-07 17:23:00 36.83 [place] [facility] Respiratory rate 2019-03-07 17:23:00 18 /min [facility] Oxygen saturation in 2019-03-07 17:23:00 98 /min [facility] Arterial blood by [facility] Pulse oximetry Branch Diastolic blood 2020-08-13 14:45:00 93 mm[Hg] [facility] pressure Heart Rate 2020-08-13 14:45:00 70 /min [facility] Physi cians Systolic blood 2020-08-13 14:45:00 169 mm[Hg] [facility] pressure Procedures Procedure Date / Time Performing Clinician Source Performed NOTICE OF PRIVACY 2021-07-01 16:12:29 Doctor Unassigned, No [facility] PRACTICES Name Medical Branch CONSENT/REFUSAL FOR 2021-07-01 16:11:28 [facility] Name [facility] Post Op Promis 29 2020-09-23 00:00:00 UT Physici ans Survey [UTP] Ortho - Surgery 2020-08-13 00:00:[address] [facility] CT FOOT RIGHT W 2019-03-07 19:03:54 Rick Becker [place] o [facility] CONTRAST [facility] COMP. METABOLIC PANEL 2019-03-07 17:34:00 Rick Becker [facility] ([id number]) [facility] CBC WITH DIFFERENTIAL 2019-03-07 17:34:00 Rick [facility] History of Elbow [place] [facility] surgery Plan of Care Planned Activity Planned Date Details Comments Source Future Scheduled Test 2023-03-26 00:00:00 IMM Influenza [facility] Seasonal (>/= 19 yrs) [code = IMM Influenza Seasonal (>/= 19 yrs)] Future Scheduled Test 2022-03-26 00:00:00 IMM Influenza [facility] Seasonal (>/= 19 yrs) [code = IMM Influenza Seasonal (>/= 19 yrs)] Future Scheduled Test 2022-03-26 00:00:00 IMM Influenza [facility] Seasonal (>/= 19 yrs) [code = IMM Influenza Seasonal (>/= 19 yrs)] Future Scheduled Test 2022-03-26 00:00:00 IMM Influenza [facility] Seasonal (>/= 19 yrs) [code = IMM Influenza Seasonal (>/= 19 yrs)] Future Scheduled Test 2022-03-26 00:00:00 IMM Influenza [facility] Seasonal (>/= 19 yrs) [code = IMM Influenza Seasonal (>/= 19 yrs)] Diagnostic Test 2020-08-13 00:00:00 [UTP] Ortho - Surgery [facility] Pending Scheduling [code = [UTP] Ortho - Surgery Scheduling] Future Scheduled Test 1997-05-16 00:00:00 COVID-19 Vaccine (#1) [facility] [code = COVID-19 Vaccine (#1)] Future Scheduled Test 1997-05-16 00:00:00 COVID-19 Vaccine (#1) [facility] [code = COVID-19 Vaccine (#1)] Future Scheduled Test 1997-05-16 00:00:00 COVID-19 Vaccine (#1) [facility] [code = COVID-19 Vaccine (#1)] Future Scheduled Test 1997-05-16 00:00:00 COVID-19 Vaccine (#1) [facility] [code = COVID-19 Vaccine (#1)] Future Scheduled Test 1997-05-16 00:00:00 COVID-19 Vaccine (#1) [facility] [code = COVID-19 Vaccine (#1)] Future Scheduled Test 1996 00:00:00 Fluoride Varnish [facility] [code = Fluoride Varnish] Encounters Start End Encounter Admission Attending Care Care Encounter Source Date/Time Date/Time Type Type Clinicians Facility Department ID 2021-01-05 Outpatient [facility] [id number] [place] 10:51:08 Health 2020-10-31 Outpatient COATS, [facility] [id number] [place] 03:05:19 [facility] 2021-07-02 2021-07-02 Letter CALEB Hernandez [id number] Univers 00:00:00 00:00:00 (Out) Eulalia MERIDA [id number] y [facility] 4.2.7.2.686 [facility] as [id number] [place] [address] Branch 2021-07-01 2021-07-01 Emergency X [facility] ERT [id number] Univers 10:21:00 12:11:00 SHAYAN ity of [facility] 2021-07-01 2021-07-01 Emergency [facility] [id number] Univers 10:21:00 12:11:00 Shayan ESTRADA [id number] i ty of [place] 4.2.7.2.686 [facility] [id number] [facility] 084 [place] 2021-02-18 2021-02-18 Office Ty, UTP ORTHO [id number] [place] 11:18:38 11:48:38 Visit Nicholette SUGAR [id number] Health [place] 9.2.7.2.686 [id number] 1 2021-01-06 2021-01-06 EXT [facility] OP LISA Coats MSRDP [id number] [place] 00:00:00 00:00:00 Osvaldo LOCATION [id number] H ealth 9.2.7.2.686 [id number] 2021-01-05 2021-01-05 Office Ty, [facility]TP ORTHO [id number] [place] 13:36:54 14:10:41 Visit Nicholette SUGAR [id number] Health [place] 9.2.7.2.686 [id number] 2020-10-02 2020-10-02 [facility] [id number] [place] 11:15:00 11:15:00 t; OSVALDO COATS - Sugar Phys Kika Ambriz 1 ans Kika 2020-09-04 2020-09-04 [facility] [id number] [place] 10:45:00 10:45:00 t; OSVALDO COATS - Sugar Phys Kika Ambriz 2 POD ans Kika 2 2020-08-21 2020-08-21 [facility] [id number] [place] 11:30:00 11:30:00 t; OSVALDO COATS, - [place] Phys Kika Ambriz 1 ans M.D. 2020-08-13 2020-08-13 Appointmen [facility] [id number] [place] 14:45:00 14:45:00 t; OSVALDO COATS, - Sugar Phys Kika Ambriz 1 ans M.D. 2019-03-07 2019-03-07 Emergency [facility] [id number] [facility] 12:26:10 15:05:00 Rick A Kiester [id number] i ty of [place] 4.2.7.2.686 [facility] [id number] [address] 2019-03-07 2019-03-07 Emergency [facility] [id number] 12:26:10 15:05:00 Rick A Kiester [id number] [place] 4.2.7.2.686 [place] [id number] [facility] 2018-12-18 2018-12-18 Out[facility] [id number] Common 14:30:00 14:30:00 t [facility] 2018-10-19 2018-10-19 Emergency [facility] [id number] [place] 17:10:38 17:10:38 Health 2018-10-19 2018-10-19 Emergency [facility] [id number] [place] 15:31:59 15:31:59 Health 2017-11-22 2017-11-22 Emergency [facility] [id number] [place] 00:59:00 00:59:00 Health Results Test Description Test Time Test Comments Results Result Sourc e Comments CT FOOT RIGHT W 2019-02-24 HISTORY: [place] Un iversity of CONTRAST 2 trauma to right foot Taiwo valerio [facility] 19:23:09 with likely abscess. Bran [...] subcutaneous fat withoutan abscess. COMP. METABOLIC PANEL ([id number]) 2019-03-07 17:57:00 Test Item Value Reference Range Interpretation Comme nts NA (test code = 9264169999) 145 mmol/L 135-145 K (test code = 3495247384) 3.9 mmol/L 3.5-5 CL (test code = 5038515512) 109 mmol/L 98-108 H CO2 TOTAL (test code = 5149942776) 26 mmol/L 23-31 AGAP (test code = 2370308384) 2-16 BUN (test code = 7719895087) 17 mg/dL 7-23 GLUCOSE (test code = 5262818721) 112 mg/dL 70-110 H CREATININE (test code = 0.97 mg/dL 0.6-1.25 7477144879) TOTAL BILI (test code = 0.2 mg/dL 0.1-1.3 5478554065) CALCIUM (test code = 0574882719) 9.5 mg/dL 8.6-10.6 T PROTEIN (test code = 2385875240) 8.0 g/dL 6.3-8.2 ALBUMIN (test code = 2355383865) 4.8 g/dL 3.5-5 ALK PHOS (test code = 4241742159) 105 U/L 34-122 ALT(SGPT) (test code = 6397788474) 25 U/L 9-51 AST(SGOT) (test code = 3308742001) 20 U/L 13-40 eGFR Calculation (Non- mL/min/1.73m2 Fijian) (test code = 4816656965) eGFR Calculation ( mL/min/1.73m2 Fijian) (test code = 0766324636) [place] (test code = MAD[place]) Association of [...] tests). Lab Interpretation (test code = Abnormal 92396-3) [facility] WITH [id number] 17:48:00 Test Item Value Reference Range Interpretation Comments WBC (test code = See_Comment H [Automated 8390-2) message] The sy stem which generated this result transmitted reference range : 4.20 - 10.70 10*3/?L. The reference range was not used to interpret this result as normal/abnormal . RBC (test code = See_Comment H [Automated 909-8) message] The sy stem which generated this [...] (test code = 36.8 fL 38.5-51.6 L 47039-0) RDW-CV (test code = 12.4 % 12.1-15.4 788-0) PLT (test code = See_Comment [Automated 777-3) message] The sy stem which generated this result transmitted reference range : 150 - 328 10*3/ ?L. The reference r lori was not used to interpret this result as normal/abnormal . MPV (test code = 11.8 fL 9.8-13 58947-9) NRBC/100 WBC (test See_Comment [Automat ed code = 1055527473) message] The system which generated this result transmitted reference range : 0.0 - 10.0 /100 WBCs. The refer ence range was not u sed to interpret th is result as normal/abnormal . NRBC x10^3 (test code <0.01 See_Comment [Auto mated = 7050032802) message] The s ystem which generated this result transmitted reference range : 10*3/?L. The reference range was not used to interpret this result as normal/abnormal . GRAN MAT (NEUT) % 64.2 % (test code = 770-8) IMM GRAN % (test code 0.60 % = 2751725454) LYMPH % (test code = 23.4 % 736-9) MONO % (test code = 7.7 % 5905-5) EOS % (test code = 3.7 % 713-8) BASO % (test code = 0.4 % 706-2) GRAN MAT x10^3(ANC) 7.16 10*3/uL 1.99-6.95 H (test code = 0547689219) IMM GRAN x10^3 (test 0.07 10*3/uL 0-0.06 H code = 8530488347) LYMPH x10^3 (test code 2.61 10*3/uL 1.09-3.23 = 731-0) MONO x10^3 (test code 0.86 10*3/uL 0.36-1.02 = 742-7) EOS x10^3 (test code = 0.41 10*3/uL 0.06-0.53 711-2) BASO x10^3 (test code 0.05 10*3/uL 0.01-0.09 = 704-7) Lab Interpretation Abnormal (test code = 95584-4) [facility]"
[2022-12-04] MEDS ORDERED: ACETAMINOPHEN 500 MG TAB ONE (21:43)
[2022-12-04] MEDS ORDERED: KETOROLAC 30 MG/ML INJ ONE (21:43)
[2022-12-04] MEDS ORDERED: LIDOCAINE 1% 20 ML MDV ONE (21:43)
--- NOTE | 2022-12-04 22:25 | RAD REPORT ---
EXAM DESCRIPTION: RAD - Knee Left 3 View - 12/04/2022 10:02 pm CLINICAL HISTORY: Left knee pain FINDINGS: No fracture or dislocation is seen. Spur extends off the anterior superior aspect of the patella. If the patient's pain persists follow-up x-ray in 1 month would recommended
--- NOTE | 2022-12-04 23:06 | ER ---
Nurse's Notes [facility] Name: Wei Mack Age: 27 yrs Sex: Male : 1995 Arrival Date: 12/04/2022 Time: 21:10 Bed 11 Private MD: Nelson Lugo Diagnosis: Pain in left knee Presentation: 12/04 21:23 Chief complaint: Patient states: left knee pain began yesterday denies injury reports [place] the [place] yesterday slight swelling and redness above left knee. Coronavirus screen: Vaccine status: Patient reports being unvaccinated. Ebola Screen: Patient negative for fever greater than or equal to 101.5 degrees Fahrenheit, and additional compatible Ebola Virus Disease symptoms. Initial Sepsis Screen: Does the patient meet any 2 criteria? No. Patient's initial sepsis screen is negative. Does the patient have a suspected source of infection? No. Patient's initial sepsis screen is negative. Risk Assessment: Do you want to hurt yourself or someone else? Patient reports no desire to harm self or others. Onset of symptoms was December 03, 2022. 21:23 Method Of Arrival: Ambulatory kl 21:23 Acuity: JULIETA 4 kl Triage Assessment: 21:26 General: Appears uncomfortable, Behavior is calm, cooperative. Pain: Complains of pain kl in left knee Pain currently is 9 out of 10 on a pain scale. EENT: No deficits noted. No signs and/or symptoms were reported regarding the EENT system. Neuro: No deficits noted. Cardiovascular: No deficits noted. Respiratory: No deficits noted. GI: No deficits noted. No signs and/or symptoms were reported involving the gastrointestinal system. : No deficits noted. No signs and/or symptoms were reported regarding the genitourinary system. Musculoskeletal: Reports pain in left knee. Historical: - Allergies: 21:26 No Known Allergies; kl - PMHx: 21:26 Hypertension; kl - PSHx: 21:26 left shoulder; kl - Immunization history:: Adult Immunizations up to date. - Social history:: Smoking status: Patient reports the use of cigarette tobacco products, smokes one pack cigarettes per day. Screenin:39 [facility] ED Fall Risk Assessment (Adult) History of falling in the last 3 months, kl including since admission No falls in past 3 months (0 pts) Confusion or Disorientation No (0 pts) Intoxicated or Sedated No (0 pts) Impaired Gait Yes (1 pt) Mobility Assist Device Used Yes (1 pt) Altered Elimination No (0 pt) Score/Fall Risk Level 0 - 2 = Low Risk Oriented to surroundings, Maintained a safe environment. Abuse screen: Denies threats or abuse. Nutritional screening: No deficits noted. Tuberculosis screening: No symptoms or risk factors identified. Assessment: 22:00 Reassessment: Patient appears in no apparent distress at this time. Patient and/or kl family updated on plan of care and expected duration. Pain level reassessed. Patient is alert, oriented x 3, equal unlabored respirations, skin warm/dry/pink. Patient states symptoms have improved. Vital Signs: 21:23 BP 129 / 77; Pulse 88; Resp 18; Temp 98.2; Pulse Ox 97% on R/A; Weight 117.93 kg (R); kl Height 5 ft. 11 in. ; Pain 9/10; 23:38 BP 121 / 71; Pulse 78; kl 21:23 Body Mass Index 36.26 (117.93 kg, 180.34 cm) kl 21:23 Pain Scale: Adult kl ED Course: 21:14 Patient arrived in ED. es 21:15 Nelson Lugo MD is Private Physician. es 21:15 Blane Morris MD is Attending Physician. bs3 21:26 Triage completed. kl 22:04 Knee Left 3 View XRAY In Process Unspecified. EDMS 23:06 Luis Burns MD is Referral Physician. bs3 23:39 Patient has correct armband on for positive identification. kl 23:39 Arm band placed on. kl 23:39 No provider procedures requiring assistance completed. Patient did not have IV access kl during this emergency room visit. Administered Medications: 21:49 Drug: Acetaminophen PO 1000 mg Route: PO; kl 23:38 Follow up: Response: No adverse reaction; Pain is decreased kl 21:50 Drug: Ketorolac IM 30 mg Route: IM; Site: left deltoid; kl 23:38 Follow up: Response: No adverse reaction; Pain is decreased kl 22:19 Drug: Lidocaine Infiltration (1 %) 50 mg {Note: administered by Dr Morris.} Volume: 20 kl ml; Route: Infiltration; Medication: 23:39 VIS not applicable for this client. kl Outcome: 23:06 Discharge ordered by . bs3 23:39 Discharged to home ambulatory. 23:39 Condition: stable 23:39 Discharge instructions given to patient, Instructed on discharge instructions, follow up and referral plans. crutch walking, Demonstrated understanding of instructions, follow-up care, crutch walking. 23:39 Patient left the ED. kl Signatures: Dispatcher [employer] Wendi Caballero RN RN kl Salyer, Edna es Stein, Brandon, MD MD bs3
--- NOTE | 2022-12-04 23:07 | EDPHYS ---
Physician Documentation [facility] Name: Wei Mack Age: 27 yrs Sex: Male : 1995 Arrival Date: 12/04/2022 Time: 21:10 Bed 11 Private MD: Nelson Lugo ED Physician Blane Morris HPI: 12/04 21:27 This 27 yrs old Male presents to ER via Ambulatory with complaints of Knee bs3 Pain. 21:27 Patient with no significant past medical history presents with left knee pain started bs3 yesterday when he got home from the beach and has been progressively tried compression but that did not help denies fevers or chills denies any trauma or any twisting or anything else bothering him he has never had this before nothing makes it better but he cannot bend his knee as he is significant pain with bending. Historical: - Allergies: 21:26 No Known Allergies; kl - PMHx: 21:26 Hypertension; kl - PSHx: 21:26 left shoulder; kl - Immunization history:: Adult Immunizations up to date. - Social history:: Smoking status: Patient reports the use of cigarette tobacco products, smokes one pack cigarettes per day. ROS: 21:27 Constitutional: Negative for fever, chills bs3 21:27 All other systems are negative. Exam: 21:27 Constitutional: This is a well developed, well nourished patient who is awake, alert, bs3 and in no acute distress. Head/Face: Normocephalic, atraumatic. ENT: mmm, no posterior phyarngeal erythema Neck: Trachea midline, no thyromegaly, no neck stiffness Chest/axilla: Normal chest wall appearance and motion. Nontender with no deformity. No lesions are appreciated. Cardiovascular: Regular rate and rhythm with a normal S1 and S2. symmetric pulses in upper extremities Respiratory: Lungs have equal breath sounds bilaterally, clear to auscultation, no respiratory distress Abdomen/GI: Soft, non-tender, no rebound or guarding MS/ Extremity: Left knee is slightly swollen compared to the right he has pain with ROM actively and passively of the left knee there is no erythema there is no fluctuance Neuro: Awake and alert, GCS 15, oriented to person, place, time, and situation. Cranial nerves II-XII grossly intact. Motor strength 5/5 in all extremities. Sensory grossly intact. Psych: Awake, alert, with orientation to person, place and time. Behavior, mood, and affect are within normal limits. Vital Signs: 21:23 BP 129 / 77; Pulse 88; Resp 18; Temp 98.2; Pulse Ox 97% on R/A; Weight 117.93 kg (R); kl Height 5 ft. 11 in. ; Pain 9/10; 23:38 BP 121 / 71; Pulse 78; kl 21:23 Body Mass Index 36.26 (117.93 kg, 180.34 cm) kl 21:23 Pain Scale: Adult kl MDM: 21:15 Patient medically screened. bs3 21:27 Data reviewed: vital signs, nurses notes. ED course: Possible joint infection versus bs3 gout versus fracture versus strain sprain or tendon rupture we will treat pain and do arthrocentesis to evaluate for infection. 23:05 ED course: I attempted the arthrocentesis at 3 different sites over the patient would bs3 not tolerate even the smallest insertion of the needle even after lidocaine was injected I had dry taps at all 3 locations there is no risk factor for septic joint however it is still a concern given no known trauma we discussed at length with the patient and family at bedside and we recommended rice for a day and very strict return precautions if his pain is not getting any better or is getting worse he understood the risk and benefits and would not let me do additional tap at this point in time advised follow-up with Ortho tomorrow. 12/04 21:22 Order name: Knee Left 3 View XRAY; Complete Time: 23:05 bs3 12/04 23:08 Order name: Crutches; Complete Time: 23:31 bs3 Administered Medications: 21:49 Drug: Acetaminophen PO 1000 mg Route: PO; kl 23:38 Follow up: Response: No adverse reaction; Pain is decreased kl 21:50 Drug: Ketorolac IM 30 mg Route: IM; Site: left deltoid; kl 23:38 Follow up: Response: No adverse reaction; Pain is decreased kl 22:19 Drug: Lidocaine Infiltration (1 %) 50 mg {Note: administered by Dr Morris.} Volume: 20 kl ml; Route: Infiltration; Disposition Summary: 12/04/22 23:06 Discharge Ordered Location: Home bs3 Problem: new bs3 Symptoms: have improved bs3 Condition: Stable bs3 Diagnosis - Pain in left knee bs3 Followup: bs3 - With: Luis Burns MD - When: 1 - 2 days - Reason: Re-evaluation by your physician Discharge Instructions: - Discharge Summary Sheet bs3 - Musculoskeletal Pain bs3 - Pain Without a Known Cause bs3 - How to Use Cold Therapy, [id number] bs3 Forms: - Work release form bs3 - Medication Reconciliation Form bs3 - Thank You Letter bs3 - Antibiotic Education bs3 - Prescription Opioid Use bs3 Signatures: Dispatcher [employer] Wendi Caballero, RN RN Blane Yanes MD MD bs3
[2022-12-04 23:49] VITALS: TEMP 98.2; O2SAT 97
[2022-12-04 23:50] VITALS: BP 121/71
== END 2022-12-04 23:39 | disposition home or self-care (01) ==
LOC: ER 21:10
DX: M25.562 Pain in left knee (principal); F17.210 Nicotine dependence, cigarettes, uncomplicated
CPT/HCPCS: 73562; 96372; 99284; J2001